=== PATIENT | male | born 1955 | race Caucasian/White ===

== ENCOUNTER 2022-11-18 07:50 | Outpatient (CLI) | payer MEDICARE, SELFPAY | END 2022-11-18 07:51 | disposition home or self-care (01) | PROVIDERS: PCP Family Medicine; Visit Provider Family Medicine | DX: H90.3 Sensorineural hearing loss, bilateral (principal) | CPT/HCPCS: 92557; 92567 ==

== ENCOUNTER 2023-05-20 14:47 | Inpatient (IN) | payer MEDICARE, SELFPAY ==
[2023-05-20 15:08] VITALS: BMI 30.2
[2023-05-20 16:00] VITALS: BP 125/56; PULSE 72; RESP 20; TEMP 36.2; O2SAT 96
[2023-05-20 16:58] LABS: Glucose Point of Care 216 mg/dl (65-105)
[2023-05-20] MEDS: INSULIN HUMAN LISPRO (*BKC) 1,000 UNITS/10 ML VIAL 14 UNITS SUB-Q (17:06)
[2023-05-20] MEDS: INSULIN HUMAN LISPRO (*BKC) 1,000 UNITS/10 ML VIAL SUB-Q (17:07)
[2023-05-20] MEDS: ceFAZolin 2 GM/NS 50 ML 2 GM/50 ML BAG IVPB (17:26)
[2023-05-20] MEDS: HYDROcodone/acetaminophen (*CRX) 5-325 MG TABLET 1 TAB PO (17:28)
[2023-05-20 19:47] VITALS: PULSE 72; RESP 20; O2SAT 96
--- NOTE | 2023-05-20 19:59 | PC.NURSE ---
at bedside, states patient will need US preformed for RLE. Order to be faxed from Dr. Ramirez, vascular MD at [facility]. Will await orders.
[2023-05-20] MEDS: ATORVASTATIN 40 MG TABLET 80 MG PO (20:36)
[2023-05-20] MEDS: GABAPENTIN 300 MG CAPSULE 600 MG PO (20:36)
[2023-05-20 20:41] LABS: Glucose Point of Care 215 mg/dl (65-105)
[2023-05-21] VITALS: BP 149/44; PULSE 69; RESP 18; TEMP 36.2; O2SAT 96
[2023-05-21] MEDS: ceFAZolin 2 GM/NS 50 ML 2 GM/50 ML BAG IVPB ×3 (00:05→16:57)
[2023-05-21] MEDS: HYDROcodone/acetaminophen (*CRX) 5-325 MG TABLET 1 TAB PO ×3 (00:07→20:41)
[2023-05-21 05:12] LABS: Basophils Percent Auto 0.9 % (0.0-1.0); Eosinophils Absolute Auto 0.56 K/mm3 (0.02-0.50); Hematocrit 32.2 % (37.0-46.0); Hemoglobin 10.5 g/dL (12.4-15.3); Immature Granulocyte Absolute 0.09 K/mm3 (0.00-0.00); Immature Granulocyte Percent A 0.8 % (0.0-0.0); Lymphocytes Absolute Auto 3.53 K/mm3 (1.10-4.50); Lymphocytes Percent Auto 31.6 % (18.0-42.0); Mean Corpuscular HGB Conc 32.6 g/dL (32.0-36.0); Mean Corpuscular Hemoglobin 30.1 pg (27.0-31.0); Mean Corpuscular Volume 92.3 fL (78.0-102.0); Mean Platelet Volume 9.8 fl (8.7-11.0); Monocytes Absolute Auto 0.87 K/mm3 (0.10-0.90); Monocytes Percent Auto 7.8 % (2.0-11.0); Neutrophils Percent Auto 53.9 % (50.0-70.0); Platelet Count Result 325 K/mm3 (150-420); Red Blood Count 3.49 M/mm3 (4.70-6.10); Red Cell Distribution Width 12.6 % (11.6-14.4); White Blood Count 11.2 K/mm3 (4.8-10.8)
[2023-05-21 05:29] LABS: Alanine Aminotransferase 21 U/L (16-63); Albumin Level 2.7 g/dL (3.4-5.0); Alkaline Phosphatase 68 U/L (46-116); Anion Gap 7 mmol/L (8-16); Aspartate Amino Transferase 23 U/L (15-37); Bilirubin,Total 0.4 mg/dL (0.00-1.00); Blood Urea Nitrogen 21 mg/dL (7-18); Calcium 8.4 mg/dL (8.5-10.1); Carbon Dioxide 29 mmol/L (21-32); Chloride 103 mmol/L (98-108); Estimated CRCL calculation 94 ml/min; Estimated Glomerular Filt Rate > 60; Glucose 231 mg/dL (70-99); Magnesium 1.9 mg/dL (1.8-2.4); Osmolality Calculated 298 mOsm/kg (285-295); Potassium 4.1 mmol/L (3.5-5.1); Sodium 139 mmol/L (136-145); Total Protein 6.1 g/dL (6.4-8.2)
--- NOTE | 2023-05-21 05:50 | PC.NURSE ---
Patient declines scheduled pain med at this time. Denies pain, or further needs.
--- NOTE | 2023-05-21 07:38 | PM.IMHP ---
H&P: HPI History of Present Illness Date/Time: 05/21/23 07:38 [facility] Social History Social History Smoking status: Never smoker Alcohol intake: former Substance use: former Substance use type: marijuana Do You Feel Safe in your Home?: Yes Lack of Transportation: No Lack of Food: Never True Current Housing: I Have Housing Concerned About Future Housing: No Difficulty Paying Gas/Electric Bills: No Difficulty Paying for Meds: No Currently Unemployed: No Education: High School Diploma/GED Difficulty w/ Childcare or Family Care: No Spiritual care concerns: No Meds Home Medications and Allergies Home Medications Medication Instructions Recorded Confirmed Type Roberto SoloStar U-300 Insulin 110 units subcut HS 05/20/23 05/20/23 History aspirin 81 mg tablet,delayed 81 mg PO DAILY 05/20/23 05/20/23 History release atenolol 25 mg tablet 12.5 mg PO DAILY 05/20/23 05/20/23 History atorvastatin 80 mg tablet 80 mg PO HS 05/20/23 05/20/23 History cefazolin 1 gram intravenous 2 g IV Q8H 05/20/23 05/20/23 History piggyback cholecalciferol (vitamin D3) 125 125 mcg PO 3XW 05/20/23 05/20/23 History mcg (5,000 unit) capsule clopidogrel 75 mg tablet 75 mg PO DAILY 05/20/23 05/20/23 History collagenase clostridium histo. 250 1 applic topical DAILY 05/20/23 05/20/23 History unit/gram topical ointment (Santyl) dulaglutide 4.5 mg/0.5 mL 4.5 mg subcut WEEKLY 05/20/23 05/20/23 History subcutaneous pen injector (Trulicity) fluticasone propionate 50 2 spray intranasal DAILY 05/20/23 05/20/23 History mcg/actuation nasal spray,suspension (Allergy Relief (fluticasone)) gabapentin 600 mg tablet 600 mg PO HS 05/20/23 05/20/23 History hydrocodone 5 mg-acetaminophen 325 1 tablet PO Q6H 05/20/23 05/20/23 History mg tablet insulin lispro 200 unit/mL (3 mL) See Rx Instructions .Route .COMPLEX 05/20/23 05/20/23 History subcutaneous pen metformin 500 mg tablet 500 mg PO DAILY 05/20/23 05/20/23 History ogawggtbtdrf-iwcjflpx-guymwd tablet 1 tablet PO DAILY 05/20/23 05/20/23 History naproxen sodium 220 mg capsule 220 mg PO BID PRN pain 05/20/23 05/20/23 History potassium 99 mg tablet See Rx Instructions .Route .COMPLEX 05/20/23 05/20/23 History Allergies Allergy/AdvReac Type Severity Reaction Status Date / Time No Known Allergies Allergy Verified 05/20/23 16:24 Vital Signs Vital Signs - 24 hr 05/20/23 16:00 05/20/23 19:47 05/21/23 00:00 Temperature 36.2 C L 36.2 C L Pulse Rate 72 72 69 Respiratory Rate 20 20 18 Blood Pressure 125/56 L 149/44 H Pulse Oximetry 96 96 96 Oxygen Delivery Room Air Room Air Room Air H&P: Results Labs Labs: Short CBC 05/21/23 Range/Units 05:07 WBC 11.2 H (4.8-10.8) K/mm3 Hgb 10.5 L (12.4-15.3) g/dL Hct 32.2 L (37.0-46.0) % Plt Count 325 (150-420) K/mm3 BMP 05/21/23 05:07 Sodium 139 Potassium 4.1 Chloride 103 Carbon Dioxide 29 BUN 21 H Creatinine 0.78 Glucose 231 H Calcium 8.4 L Liver Function 05/21/23 Range/Units 05:07 Total Bilirubin 0.4 (0.00-1.00) mg/dL AST 23 (15-37) U/L ALT 21 (16-63) U/L Alkaline Phosphatase 68 (46-116) U/L Albumin 2.7 L (3.4-5.0) g/dL
[2023-05-21 08:00] VITALS: BP 136/59; PULSE 70; RESP 18; TEMP 35.9; O2SAT 96
[2023-05-21 08:07] LABS: Glucose Point of Care 247 mg/dl (65-105)
[2023-05-21] MEDS: INSULIN HUMAN LISPRO (*BKC) 1,000 UNITS/10 ML VIAL 14 UNITS SUB-Q ×3 (08:11→16:55)
[2023-05-21] MEDS: INSULIN HUMAN LISPRO (*BKC) 1,000 UNITS/10 ML VIAL SUB-Q ×2 (08:11→12:10)
[2023-05-21] MEDS: FLUTICASONE PROPIONATE 0.05% NA SPR 16 GM BTL (*BKC) 2 SPRAY NASAL (09:00)
[2023-05-21] MEDS: metFORMIN HCL 500 MG TABLET PO (09:02)
[2023-05-21] MEDS: ASPIRIN 81 MG ENTERIC TABLET PO (09:02)
[2023-05-21] MEDS: CHOLECALCIFEROL 1,000 UNITS TABLET 5000 UNITS PO (09:02)
[2023-05-21] MEDS: OPTI-GEN TAB 1 TABLET PO (09:02)
[2023-05-21] MEDS: CLOPIDOGREL BISULFATE 75 MG TABLET PO (09:02)
[2023-05-21 09:04] VITALS: PULSE 70
[2023-05-21] MEDS: atenoloL 12.5 MG TABLET PO (09:04)
[2023-05-21] MEDS: GABAPENTIN 300 MG CAPSULE PO (09:59)
[2023-05-21] MEDS: ENOXAPARIN 40 MG/0.4 ML SYRINGE SUB-Q (11:00)
--- NOTE | 2023-05-21 11:47 | PM.IMHP ---
H&P: HPI History of Present Illness Date/Time: 05/21/23 11:47 <Kitty Moon RN - Last Filed: 05/21/23 14:17> Chief Complaint: Post op toe amputation 05/14/23 at [facility] <Kitty Moon RN - Last Filed: 05/21/23 14:17> Right foot multiple toe amputation 05/14/23 at [facility] <Smith Oconnor APRN - Last Filed: 05/21/23 14:24> Narrative: 66 year old male post op R foot toes amputation on 05/14/23 at [facility]. Patient states infection started in R great toe and developed into osteomyelitis. Patient states his first surgery was an amputation of the R great and 2nd toes, which was then treated with post op abt and worsened. Patient states sores developed on foot and infection worsened. Patient reports second surgery was needed in which all toes were amputated. Patient states he is diabetic and BS range from 130 to 180, but had increased due to infection. Patient has a history of bilateral arterial stent is lower extremities and sees a vascular surgeon at [facility]. Patient has also have past history of amputations on the left lower extremities. Patient is currently NWB to [facility]. Patient has been able to use walker to move from bed to chair. Patients was up in chair and in pleasant mood. Surgical incision is intact with 21 chauncey present. Surgical site is slightly swollen and red but no discharge present on examination this morning. Patient to continue rehab, wound care, and abt therapy. <Kitty Moon RN - Last Filed: 05/21/23 14:17> 66 year old male post op R foot toes amputation on 05/14/23 at [facility]. Patient states infection started in R great toe and developed into osteomyelitis. Patient states his first surgery was an amputation of the R great and 2nd toes, which was then treated with post op antibiotics yet still worsened. Patient states sores developed on foot and infection worsened. Patient reports second surgery was needed in which all remaining toes were amputated. Patient states he is diabetic and BS range from 130 to 180, but had increased due to infection. Patient has a history of bilateral arterial stent is lower extremities and sees a vascular surgeon at [facility]. Patient has also have past history of amputations on the left lower extremities. Patient is currently NWB to E. Patient has been able to use walker to move from bed to chair. Patients was up in chair and in pleasant mood. Surgical incision is intact with 21 chauncey present. Surgical site is slightly swollen and red but no discharge present on examination this morning. Patient to continue rehab, wound care, and IV antibiotic therapy for 6 weeks. <Smith Oconnor APRN - Last Filed: 05/21/23 14:24> Review of Systems Review of Systems: All systems reviewed & are unremarkable except as noted in HPI and below <Smith Oconnor APRN - Last Filed: 05/21/23 14:24> Constitutional: Constitutional: Reports no additional constitutional complaints, Denies body ache(s), Denies chills, Denies difficulty sleeping, Denies fatigue, Denies lethargy, Denies night sweats and Denies weakness <Kitty Moon RN - Last Filed: 05/21/23 14:17> Eyes: Eyes: Reports no additional eye complaints <Kitty Moon RN - Last Filed: 05/21/23 14:17> Comments: patient states has blurry vision which is corrected with glasses <Kitty Moon RN - Last Filed: 05/21/23 14:17> ENT: Reports tinnitus <Kitty Moon RN - Last Filed: 05/21/23 14:17> Comments: report chronic tinnitus <Kitty Moon RN - Last Filed: 05/21/23 14:17> Cardiovascular: Cardiovascular: Reports no additional cardiovascular complaints, Denies chest pain and Reports pedal edema <Kitty Moon RN - Last Filed: 05/21/23 14:17> Comments: RLE swelling due to amputations 05/14/23 <Kitty Moon RN - Last Filed: 05/21/23 14:17> Respiratory: Respiratory: Reports no additional respiratory complaints, Denies chest gabby
[2023-05-21 12:10] LABS: Glucose Point of Care 286 mg/dl (65-105)
[2023-05-21 16:00] VITALS: BP 107/46; PULSE 68; RESP 18; TEMP 35.7; O2SAT 97
[2023-05-21 17:00] LABS: Glucose Point of Care 164 mg/dl (65-105)
[2023-05-21] MEDS: ATORVASTATIN 40 MG TABLET 80 MG PO (20:38)
[2023-05-21] MEDS: GABAPENTIN 300 MG CAPSULE 600 MG PO (20:39)
[2023-05-21] MEDS: INSULIN GLARGINE (*BKC) 1,000 UNITS/10 ML VIAL 30 UNITS SUB-Q (20:39)
[2023-05-21 20:48] LABS: Glucose Point of Care 246 mg/dl (65-105)
[2023-05-21 23:52] VITALS: BP 120/42; PULSE 66; RESP 18; TEMP 36.3; O2SAT 97
[2023-05-22] MEDS: ceFAZolin 2 GM/NS 50 ML 2 GM/50 ML BAG IVPB ×3 (01:05→17:49)
[2023-05-22 07:35] VITALS: BP 111/51; PULSE 63; RESP 16; TEMP 35.7; O2SAT 98
[2023-05-22 08:03] LABS: Glucose Point of Care 244 mg/dl (65-105)
[2023-05-22 08:47] VITALS: PULSE 63
[2023-05-22] MEDS: OPTI-GEN TAB 1 TABLET PO (08:47)
[2023-05-22] MEDS: atenoloL 12.5 MG TABLET PO (08:47)
[2023-05-22] MEDS: FLUTICASONE PROPIONATE 0.05% NA SPR 16 GM BTL (*BKC) 2 SPRAY NASAL (08:47)
[2023-05-22] MEDS: ENOXAPARIN 40 MG/0.4 ML SYRINGE SUB-Q (08:47)
[2023-05-22] MEDS: metFORMIN HCL 500 MG TABLET PO (08:47)
[2023-05-22] MEDS: ASPIRIN 81 MG ENTERIC TABLET PO (08:48)
[2023-05-22] MEDS: INSULIN HUMAN LISPRO (*BKC) 1,000 UNITS/10 ML VIAL 14 UNITS SUB-Q ×3 (08:48→17:48)
[2023-05-22] MEDS: CLOPIDOGREL BISULFATE 75 MG TABLET PO (08:48)
[2023-05-22] MEDS: GABAPENTIN 300 MG CAPSULE PO (08:48)
[2023-05-22] MEDS: INSULIN HUMAN LISPRO (*BKC) 1,000 UNITS/10 ML VIAL SUB-Q ×2 (08:48→11:48)
[2023-05-22 11:39] LABS: Glucose Point of Care 265 mg/dl (65-105)
[2023-05-22 16:30] VITALS: BP 105/42; PULSE 66; RESP 16; TEMP 36.1; O2SAT 97
[2023-05-22 17:00] LABS: Glucose Point of Care 131 mg/dl (65-105)
[2023-05-22] MEDS: INSULIN GLARGINE (*BKC) 1,000 UNITS/10 ML VIAL 30 UNITS SUB-Q (20:31)
[2023-05-22 20:32] LABS: Glucose Point of Care 165 mg/dl (65-105)
[2023-05-22] MEDS: GABAPENTIN 300 MG CAPSULE 600 MG PO (20:32)
[2023-05-22] MEDS: ATORVASTATIN 40 MG TABLET 80 MG PO (20:33)
[2023-05-22] MEDS: ACETAMINOPHEN 325 MG TABLET 650 MG PO (20:33)
[2023-05-23] VITALS: BP 132/49; PULSE 95; RESP 16; TEMP 36.9; O2SAT 97
[2023-05-23] MEDS: ceFAZolin 2 GM/NS 50 ML 2 GM/50 ML BAG IVPB ×3 (01:54→17:36)
[2023-05-23 07:45] VITALS: BP 122/40; PULSE 67; RESP 16; TEMP 35.8; O2SAT 99
[2023-05-23 08:09] LABS: Glucose Point of Care 230 mg/dl (65-105)
[2023-05-23] MEDS: ENOXAPARIN 40 MG/0.4 ML SYRINGE SUB-Q (08:50)
[2023-05-23] MEDS: CHOLECALCIFEROL 1,000 UNITS TABLET 5000 UNITS PO (08:50)
[2023-05-23 08:51] VITALS: PULSE 67
[2023-05-23] MEDS: metFORMIN HCL 500 MG TABLET PO (08:51)
[2023-05-23] MEDS: atenoloL 12.5 MG TABLET PO (08:51)
[2023-05-23] MEDS: ASPIRIN 81 MG ENTERIC TABLET PO (08:51)
[2023-05-23] MEDS: CLOPIDOGREL BISULFATE 75 MG TABLET PO (08:51)
[2023-05-23] MEDS: OPTI-GEN TAB 1 TABLET PO (08:51)
[2023-05-23] MEDS: GABAPENTIN 300 MG CAPSULE PO (08:51)
[2023-05-23] MEDS: INSULIN HUMAN LISPRO (*BKC) 1,000 UNITS/10 ML VIAL SUB-Q ×2 (08:52→13:05)
[2023-05-23] MEDS: INSULIN HUMAN LISPRO (*BKC) 1,000 UNITS/10 ML VIAL 14 UNITS SUB-Q ×2 (08:52→13:06)
[2023-05-23] MEDS: FLUTICASONE PROPIONATE 0.05% NA SPR 16 GM BTL (*BKC) 2 SPRAY NASAL (08:52)
[2023-05-23 12:09] LABS: Glucose Point of Care 206 mg/dl (65-105)
--- NOTE | 2023-05-23 15:30 | PC.NURSE ---
Luiza called out to ask for blood sugar to be checked, stating he feels like it is low and his vision and getting a blurry.. BS check 54. Patient given orange juice and sinan crackers. Patient states he will call if he feels low again. Nurse will cont. to monitor patient and recheck blood sugar. TRUCK BODY BUILDER Markus aware, no new orders at this time.
[2023-05-23 16:45] VITALS: BP 124/43; PULSE 69; RESP 16; TEMP 36.2; O2SAT 98
[2023-05-23 17:09] LABS: Glucose Point of Care 125 mg/dl (65-105)
[2023-05-23 17:09] LABS: Glucose Point of Care 54 mg/dl (65-105)
--- NOTE | 2023-05-23 19:28 | PC.NURSE ---
Patient is requesting Colace daily or every other day. States he does not want to get constipated. Patient and aware of PRN Miralax orders. Will update SENIOR INFORMATION SECURITY CONSULTANT during rounds d/t non-urgent nature of request.
[2023-05-23 19:58] VITALS: PULSE 69; RESP 16; O2SAT 98
[2023-05-23] MEDS: GABAPENTIN 300 MG CAPSULE 600 MG PO (20:36)
[2023-05-23] MEDS: HYDROcodone/acetaminophen (*CRX) 5-325 MG TABLET 1 TAB PO (20:37)
[2023-05-23] MEDS: ATORVASTATIN 40 MG TABLET 80 MG PO (20:37)
[2023-05-23] MEDS: INSULIN GLARGINE (*BKC) 1,000 UNITS/10 ML VIAL 30 UNITS SUB-Q (20:38)
[2023-05-23 20:40] LABS: Glucose Point of Care 292 mg/dl (65-105)
[2023-05-24] VITALS: BP 122/53; PULSE 69; RESP 16; TEMP 36.2; O2SAT 97
[2023-05-24] MEDS: ceFAZolin 2 GM/NS 50 ML 2 GM/50 ML BAG IVPB ×3 (00:07→17:41)
[2023-05-24 07:59] LABS: Glucose Point of Care 225 mg/dl (65-105)
[2023-05-24 08:00] VITALS: BP 114/51; PULSE 66; RESP 20; TEMP 35.8; O2SAT 98
[2023-05-24] MEDS: INSULIN HUMAN LISPRO (*BKC) 1,000 UNITS/10 ML VIAL SUB-Q ×2 (08:04→12:07)
[2023-05-24] MEDS: INSULIN HUMAN LISPRO (*BKC) 1,000 UNITS/10 ML VIAL 14 UNITS SUB-Q ×3 (08:05→17:00)
[2023-05-24] MEDS: FLUTICASONE PROPIONATE 0.05% NA SPR 16 GM BTL (*BKC) 2 SPRAY NASAL (09:04)
[2023-05-24 09:05] VITALS: PULSE 68
[2023-05-24] MEDS: OPTI-GEN TAB 1 TABLET PO (09:05)
[2023-05-24] MEDS: GABAPENTIN 300 MG CAPSULE PO (09:05)
[2023-05-24] MEDS: CLOPIDOGREL BISULFATE 75 MG TABLET PO (09:05)
[2023-05-24] MEDS: metFORMIN HCL 500 MG TABLET PO (09:05)
[2023-05-24] MEDS: ASPIRIN 81 MG ENTERIC TABLET PO (09:05)
[2023-05-24] MEDS: atenoloL 12.5 MG TABLET PO (09:05)
[2023-05-24] MEDS: ENOXAPARIN 40 MG/0.4 ML SYRINGE SUB-Q (09:14)
[2023-05-24 12:01] LABS: Glucose Point of Care 215 mg/dl (65-105)
[2023-05-24 16:00] VITALS: BP 129/45; PULSE 65; RESP 18; TEMP 36.1; O2SAT 95
[2023-05-24 17:09] LABS: Glucose Point of Care 168 mg/dl (65-105)
[2023-05-24 20:00] VITALS: PULSE 65; RESP 18; O2SAT 95
[2023-05-24] MEDS: GABAPENTIN 300 MG CAPSULE 600 MG PO (20:41)
[2023-05-24] MEDS: HYDROcodone/acetaminophen (*CRX) 5-325 MG TABLET 1 TAB PO (20:41)
[2023-05-24] MEDS: ATORVASTATIN 40 MG TABLET 80 MG PO (20:41)
[2023-05-24 20:44] LABS: Glucose Point of Care 198 mg/dl (65-105)
[2023-05-24] MEDS: INSULIN GLARGINE (*BKC) 1,000 UNITS/10 ML VIAL 30 UNITS SUB-Q (21:55)
[2023-05-24 23:57] VITALS: BP 127/56; PULSE 66; RESP 17; TEMP 36.2; O2SAT 99
[2023-05-25] MEDS: ceFAZolin 2 GM/NS 50 ML 2 GM/50 ML BAG IVPB ×3 (00:11→17:06)
[2023-05-25 07:26] LABS: Glucose Point of Care 212 mg/dl (65-105)
[2023-05-25] MEDS: INSULIN HUMAN LISPRO (*BKC) 1,000 UNITS/10 ML VIAL 14 UNITS SUB-Q ×3 (07:32→17:04)
[2023-05-25] MEDS: INSULIN HUMAN LISPRO (*BKC) 1,000 UNITS/10 ML VIAL SUB-Q ×2 (07:32→11:40)
[2023-05-25 08:00] VITALS: BP 111/56; PULSE 61; RESP 18; TEMP 36.1; O2SAT 98
[2023-05-25] MEDS: CHOLECALCIFEROL 1,000 UNITS TABLET 5000 UNITS PO (09:05)
[2023-05-25 09:06] VITALS: PULSE 65
[2023-05-25] MEDS: OPTI-GEN TAB 1 TABLET PO (09:06)
[2023-05-25] MEDS: CLOPIDOGREL BISULFATE 75 MG TABLET PO (09:06)
[2023-05-25] MEDS: metFORMIN HCL 500 MG TABLET PO (09:06)
[2023-05-25] MEDS: GABAPENTIN 300 MG CAPSULE PO (09:06)
[2023-05-25] MEDS: atenoloL 12.5 MG TABLET PO (09:06)
[2023-05-25] MEDS: ENOXAPARIN 40 MG/0.4 ML SYRINGE SUB-Q (09:07)
[2023-05-25] MEDS: ASPIRIN 81 MG ENTERIC TABLET PO (09:08)
[2023-05-25] MEDS: FLUTICASONE PROPIONATE 0.05% NA SPR 16 GM BTL (*BKC) 2 SPRAY NASAL (09:11)
[2023-05-25 11:29] LABS: Glucose Point of Care 291 mg/dl (65-105)
[2023-05-25 15:54] VITALS: BP 126/47; PULSE 65; RESP 18; TEMP 35.7; O2SAT 99
[2023-05-25 16:47] LABS: Glucose Point of Care 187 mg/dl (65-105)
[2023-05-25 20:00] VITALS: PULSE 65; RESP 18; O2SAT 99
[2023-05-25] MEDS: ATORVASTATIN 40 MG TABLET 80 MG PO (20:31)
[2023-05-25] MEDS: HYDROcodone/acetaminophen (*CRX) 5-325 MG TABLET 1 TAB PO (20:31)
[2023-05-25] MEDS: GABAPENTIN 300 MG CAPSULE 600 MG PO (20:31)
[2023-05-25 20:33] LABS: Glucose Point of Care 212 mg/dl (65-105)
[2023-05-25] MEDS: INSULIN GLARGINE (*BKC) 1,000 UNITS/10 ML VIAL 30 UNITS SUB-Q (20:43)
[2023-05-25 23:35] VITALS: BP 138/47; PULSE 66; RESP 17; TEMP 36.1; O2SAT 97
[2023-05-26] MEDS: ceFAZolin 2 GM/NS 50 ML 2 GM/50 ML BAG IVPB ×3 (00:53→15:56)
[2023-05-26 05:39] LABS: Basophils Absolute Auto 0.08 K/mm3 (0.00-0.10); Basophils Percent Auto 0.7 % (0.0-1.0); Eosinophils Absolute Auto 0.49 K/mm3 (0.02-0.50); Eosinophils Percent Auto 4.2 % (1.0-6.0); Hematocrit 32.7 % (37.0-46.0); Hemoglobin 10.5 g/dL (12.4-15.3); Immature Granulocyte Absolute 0.07 K/mm3 (0.00-0.00); Immature Granulocyte Percent A 0.6 % (0.0-0.0); Lymphocytes Absolute Auto 3.18 K/mm3 (1.10-4.50); Lymphocytes Percent Auto 27.1 % (18.0-42.0); Mean Corpuscular HGB Conc 32.1 g/dL (32.0-36.0); Mean Corpuscular Hemoglobin 29.8 pg (27.0-31.0); Mean Corpuscular Volume 92.9 fL (78.0-102.0); Mean Platelet Volume 9.9 fl (8.7-11.0); Monocytes Absolute Auto 0.92 K/mm3 (0.10-0.90); Monocytes Percent Auto 7.8 % (2.0-11.0); Neutrophils Percent Auto 59.6 % (50.0-70.0); Platelet Count Result 332 K/mm3 (150-420); Red Blood Count 3.52 M/mm3 (4.70-6.10); Red Cell Distribution Width 12.6 % (11.6-14.4); White Blood Count 11.7 K/mm3 (4.8-10.8)
[2023-05-26 05:44] LABS: Anion Gap 6 mmol/L (8-16); Blood Urea Nitrogen 18 mg/dL (7-18); Calcium 8.7 mg/dL (8.5-10.1); Carbon Dioxide 31 mmol/L (21-32); Chloride 101 mmol/L (98-108); Estimated CRCL calculation 95 ml/min; Estimated Glomerular Filt Rate > 60; Glucose 212 mg/dL (70-99); Osmolality Calculated 293 mOsm/kg (285-295); Potassium 4.1 mmol/L (3.5-5.1); Sodium 138 mmol/L (136-145)
[2023-05-26 06:38] LABS: Erythrocyte Sedimentation Rate 34 mm/hr (0-20)
[2023-05-26 07:18] LABS: Glucose Point of Care 241 mg/dl (65-105)
[2023-05-26] MEDS: INSULIN HUMAN LISPRO (*BKC) 1,000 UNITS/10 ML VIAL 14 UNITS SUB-Q ×3 (07:25→16:49)
[2023-05-26] MEDS: INSULIN HUMAN LISPRO (*BKC) 1,000 UNITS/10 ML VIAL SUB-Q ×3 (07:26→16:49)
[2023-05-26 07:27] VITALS: PULSE 62
[2023-05-26] MEDS: atenoloL 12.5 MG TABLET PO (07:27)
[2023-05-26] MEDS: OPTI-GEN TAB 1 TABLET PO (07:27)
[2023-05-26] MEDS: metFORMIN HCL 500 MG TABLET PO (07:28)
[2023-05-26] MEDS: GABAPENTIN 300 MG CAPSULE PO (07:28)
[2023-05-26] MEDS: FLUTICASONE PROPIONATE 0.05% NA SPR 16 GM BTL (*BKC) 2 SPRAY NASAL (07:29)
[2023-05-26] MEDS: CLOPIDOGREL BISULFATE 75 MG TABLET PO (07:29)
[2023-05-26] MEDS: ENOXAPARIN 40 MG/0.4 ML SYRINGE SUB-Q (07:29)
[2023-05-26] MEDS: ASPIRIN 81 MG ENTERIC TABLET PO (07:29)
[2023-05-26 07:50] VITALS: BP 129/52; PULSE 62; RESP 20; TEMP 35.9; O2SAT 97
--- NOTE | 2023-05-26 08:00 | PC.NURSE ---
Patients here to transport to . Temporary Absence sheet signed and placed on chart. Patient accompanied to front door via wheelchair by this nurse, left via private vehicle with .
--- NOTE | 2023-05-26 08:52 | PCPTNOTE ---
Patient not seen this morning for physical therapy, as he was away at an appointment.
--- NOTE | 2023-05-26 11:10 | PC.NURSE ---
1105 pt returned from Doctors visit and is back in his room
[2023-05-26 11:43] LABS: Glucose Point of Care 260 mg/dl (65-105)
[2023-05-26 16:27] LABS: Glucose Point of Care 231 mg/dl (65-105)
[2023-05-26 20:00] VITALS: PULSE 62; RESP 20; O2SAT 97
[2023-05-26] MEDS: HYDROcodone/acetaminophen (*CRX) 5-325 MG TABLET 1 TAB PO (20:21)
[2023-05-26] MEDS: polyethylene glycoL 3350 17 GM POWD.PACK PO (20:21)
[2023-05-26] MEDS: GABAPENTIN 300 MG CAPSULE 600 MG PO (20:21)
[2023-05-26] MEDS: ATORVASTATIN 40 MG TABLET 80 MG PO (20:21)
[2023-05-26] MEDS: INSULIN GLARGINE (*BKC) 1,000 UNITS/10 ML VIAL 30 UNITS SUB-Q (20:22)
[2023-05-26 20:25] LABS: Glucose Point of Care 252 mg/dl (65-105)
[2023-05-27] VITALS: BP 124/42; PULSE 69; RESP 17; TEMP 36.2; O2SAT 97
[2023-05-27] MEDS: ceFAZolin 2 GM/NS 50 ML 2 GM/50 ML BAG IVPB ×3 (00:14→17:50)
--- NOTE | 2023-05-27 07:42 | PM.IMPN ---
Progress Note: A&P Assessment and Plan (1) Osteomyelitis of right foot: Code(s): M86.9 - Osteomyelitis, unspecified Status: Acute Assessment and Plan: Status post partial foot amputation all toes removed. Patient is receiving IV antibiotics per PICC line left upper extremity. These are to continue for 6 weeks. Follow-up in five weeks and weekly lab monitoring per Infectious Disease. (2) Diabetes: Code(s): E11.9 - Type 2 diabetes mellitus without complications Status: Acute Assessment and Plan: Increased Lantus to 42 units at night, patient gets 14 units of insulin with each meal plus low-dose sliding scale. Next adjustment recommendation be to change sliding scale to high dose if the increase Lantus does not help improve his sugars. He is also not receiving his Trulicity here that he was taking at home. After further review home medications it appears the patient takes 110 units of Toujeo daily at home so we likely room to increase his Lantus dosing as needed. (3) PAD (peripheral artery disease): Code(s): I73.9 - Peripheral vascular disease, unspecified Status: Acute Assessment and Plan: ?Scheduled appointment May 29 for vascular lab at [facility] ?Scheduled appointment June 01 for vascular surgeon at [facility] Time Spent With Patient Time with patient: 15 - 25 minutes Subjective Date/time seen: 05/27/23 07:42 Interval history: Patient is at [facility] swing bed for IV antibiotics for total of 6 weeks after partial foot amputation right foot, all toes removed. Yesterday he went to see the surgeon in the clinic who wanted to wait another week to remove chauncey but otherwise is pleased with the progress and the wound. His splint was removed and he was given a walking boot for when he is up. He should not put pressure on the ball of foot per surgery recommendations. Therapy is working with patient. He is receiving IV antibiotics does not feel comfortable to do so at home and is planning on remaining at this facility for entire duration IV antibiotic course. He does have upcoming follow-up with Infectious Disease at about the 5 week hu and he is getting weekly labs that are being sent to Infectious Disease. Patient notes that he is getting a lot of carbohydrates with his food trays even though he is a diabetic diet. His blood sugars have been in the mid to high 200s for several days. We will increase Lantus. Patient had one hypoglycemic episode on May 22 but sugars have been escalating ever since. I overheard patient tell the RN that he does not drink the water here because he does not like flavor. Review of Systems Review of Systems: All systems reviewed & are unremarkable except as noted in HPI and below Exam Narrative: GENERAL: Well-appearing, well-nourished, and in no acute distress. HEAD: Normocephalic, atraumatic. ENT:? Mucous membranes moist. CHEST: Clear to auscultation.? No respiratory distress. HEART: Regular rate and rhythm. ? Normal peripheral pulses. ABDOMEN: Soft, nontender, nondistended. EXTREMITIES: Normal range of motion. No peripheral edema. right foot partial amputation all toes removed wound well approximated with chauncey no active drainage SKIN: Warm dry Generally pale NEURO: Alert and oriented x3. PSYCH: Normal mood and affect Objective Data Vital Signs Vital Signs: Vital Signs - 24 hr 05/26/23 07:50 05/26/23 07:50 05/26/23 20:00 Temperature 35.9 C L Pulse Rate 62 62 62 Respiratory Rate 20 20 20 Blood Pressure 129/52 L Pulse Oximetry 97 97 97 Oxygen Delivery Room Air Room Air Room Air 05/27/23 00:00 Temperature 36.2 C L Pulse Rate 69 Respiratory Rate 17 Blood Pressure 124/42 L Pulse Oximetry 97 Oxygen Delivery Room Air Intake/Output Intake/Output: Intake & Output 05/24/23 05/25/23 05/26/23 05/27/23 23:59 23:59 23:59 23:59 Intake Total 4253 4859 950 139
[2023-05-27 08:00] VITALS: BP 137/41; PULSE 63; RESP 16; TEMP 35.9; O2SAT 98
[2023-05-27 08:03] LABS: Glucose Point of Care 271 mg/dl (65-105)
[2023-05-27] MEDS: INSULIN HUMAN LISPRO (*BKC) 1,000 UNITS/10 ML VIAL SUB-Q ×2 (09:06→12:24)
[2023-05-27] MEDS: INSULIN HUMAN LISPRO (*BKC) 1,000 UNITS/10 ML VIAL 14 UNITS SUB-Q ×3 (09:06→17:49)
[2023-05-27 09:07] VITALS: PULSE 80
[2023-05-27] MEDS: atenoloL 12.5 MG TABLET PO (09:07)
[2023-05-27] MEDS: CHOLECALCIFEROL 1,000 UNITS TABLET 5000 UNITS PO (09:07)
[2023-05-27] MEDS: ENOXAPARIN 40 MG/0.4 ML SYRINGE SUB-Q (09:07)
[2023-05-27] MEDS: CLOPIDOGREL BISULFATE 75 MG TABLET PO (09:07)
[2023-05-27] MEDS: metFORMIN HCL 500 MG TABLET PO (09:07)
[2023-05-27] MEDS: OPTI-GEN TAB 1 TABLET PO (09:07)
[2023-05-27] MEDS: FLUTICASONE PROPIONATE 0.05% NA SPR 16 GM BTL (*BKC) 2 SPRAY NASAL (09:08)
[2023-05-27] MEDS: GABAPENTIN 300 MG CAPSULE PO (09:08)
[2023-05-27] MEDS: ASPIRIN 81 MG ENTERIC TABLET PO (09:08)
--- NOTE | 2023-05-27 11:25 | PCCCNOTE ---
Faxed weekly labs to Dr. Danie Michaud [phone].
[2023-05-27 11:46] LABS: Glucose Point of Care 268 mg/dl (65-105)
[2023-05-27 16:00] VITALS: BP 135/62; PULSE 88; RESP 17; TEMP 36.3; O2SAT 96
[2023-05-27 17:08] LABS: Glucose Point of Care 185 mg/dl (65-105)
[2023-05-27] MEDS: HYDROcodone/acetaminophen (*CRX) 5-325 MG TABLET 1 TAB PO (21:15)
[2023-05-27] MEDS: INSULIN GLARGINE (*BKC) 1,000 UNITS/10 ML VIAL 42 UNITS SUB-Q (21:15)
[2023-05-27] MEDS: ATORVASTATIN 40 MG TABLET 80 MG PO (21:15)
[2023-05-27] MEDS: GABAPENTIN 300 MG CAPSULE 600 MG PO (21:15)
[2023-05-27 21:20] LABS: Glucose Point of Care 239 mg/dl (65-105)
[2023-05-28] MEDS: ceFAZolin 2 GM/NS 50 ML 2 GM/50 ML BAG IVPB ×3 (00:25→17:57)
[2023-05-28 00:30] VITALS: BP 135/55; PULSE 68; RESP 16; TEMP 36.3; O2SAT 96
[2023-05-28 08:00] VITALS: BP 126/48; PULSE 66; RESP 16; TEMP 35.6; O2SAT 98
[2023-05-28 08:01] LABS: Glucose Point of Care 244 mg/dl (65-105)
[2023-05-28] MEDS: INSULIN HUMAN LISPRO (*BKC) 1,000 UNITS/10 ML VIAL 14 UNITS SUB-Q ×3 (09:36→18:00)
[2023-05-28] MEDS: FLUTICASONE PROPIONATE 0.05% NA SPR 16 GM BTL (*BKC) 2 SPRAY NASAL (09:37)
[2023-05-28] MEDS: INSULIN HUMAN LISPRO (*BKC) 1,000 UNITS/10 ML VIAL SUB-Q ×2 (09:37→11:46)
[2023-05-28] MEDS: ENOXAPARIN 40 MG/0.4 ML SYRINGE SUB-Q (09:38)
[2023-05-28 09:39] VITALS: PULSE 65
[2023-05-28] MEDS: ASPIRIN 81 MG ENTERIC TABLET PO (09:39)
[2023-05-28] MEDS: metFORMIN HCL 500 MG TABLET PO (09:39)
[2023-05-28] MEDS: CLOPIDOGREL BISULFATE 75 MG TABLET PO (09:39)
[2023-05-28] MEDS: GABAPENTIN 300 MG CAPSULE PO (09:39)
[2023-05-28] MEDS: atenoloL 12.5 MG TABLET PO (09:39)
[2023-05-28] MEDS: OPTI-GEN TAB 1 TABLET PO (09:39)
[2023-05-28 11:46] LABS: Glucose Point of Care 330 mg/dl (65-105)
--- NOTE | 2023-05-28 15:28 | PM.EVENT ---
Event Note Event Note Event Note: This provider assumes care from Markus Oconnor NP. I met with the patient this morning to introduce myself and establish a baseline assessment. Mr Raygoza has no questions or concerns at this time. He has a scheduled Dr appointment in [place] on 05/29. Blood glucose continues to be elevated. Home Toujeo dose is 110 units HS. Patient had one episode of hypoglycemia since admit. Will increase Lantus to half the home dose. General: well appearing, well developed, well nourished, appears stated age. HEENT: normocephalic, atraumatic. Mucous membranes moist. EOMI, PERRLA, bilateral sclera anicteric, no conjunctival injection. Neck supple without JVD, lymphadenopathy, or bruit. Respiratory: clear to auscultation bilaterally. No rales/rhonic/wheezes. Cardiovascular: Regular rate and rhythm, normal S1-S2 upon auscultation. No murmurs, rubs, or clicks. PMI is nondisplaced, capillary re-fill less than 3 second. Abdomen: Soft, flat, no pulsatile masses, non-distended and non-tender. No rebound, no guarding. No CVA tenderness, no hepatosplenomegaly. Bowel sounds present to all four quadrants. No high pitch or tinkling sounds, resonant to percussion. Extremities: No cyanosis, clubbing, or edema present. Pulses are palpable 2/1. Active ROM to all four extremities. RLE with complete toe amputation. Incision is well approximated with chauncey and trace edema. No s/s of infection. Incision painted with betadine and then wrapped with kerlix and ANGELA bandage. Neuro: Alert and orientated x 4. PERRLA. Cranial nerves 2-12 intact without focal deficit. Skin: Warm, dry, and intact, without rash, erythema, or lesion. Lines: PICC 1 lumen LUE without s/s of infection. Incisions: Right foot s/p amputation. Psych: pleasant, cooperative, normal speech, normal affect, no hallucinations, no dysarthria
[2023-05-28 16:00] VITALS: BP 138/62; PULSE 63; RESP 17; TEMP 37.2; O2SAT 92
[2023-05-28 17:06] LABS: Glucose Point of Care 159 mg/dl (65-105)
--- NOTE | 2023-05-28 18:30 | PC.NURSE ---
Changed pt's PICC dressing due to dried blood under dressing.
[2023-05-28] MEDS: ATORVASTATIN 40 MG TABLET 80 MG PO (20:04)
[2023-05-28] MEDS: GABAPENTIN 300 MG CAPSULE 600 MG PO (20:04)
[2023-05-28] MEDS: INSULIN GLARGINE (*BKC) 1,000 UNITS/10 ML VIAL 55 UNITS SUB-Q (20:05)
[2023-05-28 20:10] LABS: Glucose Point of Care 323 mg/dl (65-105)
[2023-05-28] MEDS: HYDROcodone/acetaminophen (*CRX) 5-325 MG TABLET 1 TAB PO (21:30)
[2023-05-29] VITALS: BP 124/55; PULSE 60; RESP 16; TEMP 36.1; O2SAT 97
[2023-05-29] MEDS: ceFAZolin 2 GM/NS 50 ML 2 GM/50 ML BAG IVPB ×3 (00:05→17:41)
[2023-05-29 08:00] VITALS: BP 131/54; PULSE 60; RESP 16; TEMP 35.8; O2SAT 98
[2023-05-29 08:04] LABS: Glucose Point of Care 216 mg/dl (65-105)
[2023-05-29] MEDS: INSULIN HUMAN LISPRO (*BKC) 1,000 UNITS/10 ML VIAL 14 UNITS SUB-Q ×3 (08:09→17:09)
[2023-05-29] MEDS: INSULIN HUMAN LISPRO (*BKC) 1,000 UNITS/10 ML VIAL SUB-Q ×2 (08:10→11:59)
[2023-05-29] MEDS: ENOXAPARIN 40 MG/0.4 ML SYRINGE SUB-Q (09:29)
[2023-05-29] MEDS: FLUTICASONE PROPIONATE 0.05% NA SPR 16 GM BTL (*BKC) 2 SPRAY NASAL (09:29)
[2023-05-29 09:30] VITALS: PULSE 60
[2023-05-29] MEDS: OPTI-GEN TAB 1 TABLET PO (09:30)
[2023-05-29] MEDS: metFORMIN HCL 500 MG TABLET PO (09:30)
[2023-05-29] MEDS: atenoloL 12.5 MG TABLET PO (09:30)
[2023-05-29] MEDS: CHOLECALCIFEROL 1,000 UNITS TABLET 5000 UNITS PO (09:30)
[2023-05-29] MEDS: GABAPENTIN 300 MG CAPSULE PO (09:30)
[2023-05-29] MEDS: ASPIRIN 81 MG ENTERIC TABLET PO (09:30)
[2023-05-29] MEDS: CLOPIDOGREL BISULFATE 75 MG TABLET PO (09:30)
[2023-05-29 12:02] LABS: Glucose Point of Care 244 mg/dl (65-105)
[2023-05-29 16:00] VITALS: BP 131/47; PULSE 67; RESP 16; TEMP 36; O2SAT 98
[2023-05-29 16:55] LABS: Glucose Point of Care 139 mg/dl (65-105)
[2023-05-29 20:00] VITALS: PULSE 67; RESP 16; O2SAT 98
[2023-05-29] MEDS: GABAPENTIN 300 MG CAPSULE 600 MG PO (20:07)
[2023-05-29] MEDS: ATORVASTATIN 40 MG TABLET 80 MG PO (20:07)
[2023-05-29 20:13] LABS: Glucose Point of Care 167 mg/dl (65-105)
[2023-05-29] MEDS: INSULIN GLARGINE (*BKC) 1,000 UNITS/10 ML VIAL 65 UNITS SUB-Q (20:13)
--- NOTE | 2023-05-29 20:15 | PC.NURSE ---
states concern regarding patient surgical wound. Picture shown to advertising copywriter, ball of foot under surgical incision noted to be red and dry, small pea sized purple area noted to bottom interior side (great toe side). Healing process explained to and patient, since advertising copywriter unable to visualize actual wound, will update hospitalist when here for rounds.
[2023-05-29] MEDS: HYDROcodone/acetaminophen (*CRX) 5-325 MG TABLET 1 TAB PO (21:48)
[2023-05-30] VITALS: BP 134/49; PULSE 67; RESP 16; TEMP 36.1; O2SAT 98
[2023-05-30] MEDS: ceFAZolin 2 GM/NS 50 ML 2 GM/50 ML BAG IVPB ×3 (00:06→17:51)
[2023-05-30 08:00] VITALS: BP 149/62; PULSE 64; RESP 16; TEMP 35.7; O2SAT 98
[2023-05-30 08:11] LABS: Glucose Point of Care 184 mg/dl (65-105)
[2023-05-30] MEDS: INSULIN HUMAN LISPRO (*BKC) 1,000 UNITS/10 ML VIAL 14 UNITS SUB-Q ×2 (08:25→17:10)
[2023-05-30] MEDS: ENOXAPARIN 40 MG/0.4 ML SYRINGE SUB-Q (09:16)
[2023-05-30] MEDS: OPTI-GEN TAB 1 TABLET PO (09:16)
[2023-05-30] MEDS: metFORMIN HCL 500 MG TABLET PO (09:16)
[2023-05-30] MEDS: CLOPIDOGREL BISULFATE 75 MG TABLET PO (09:16)
[2023-05-30] MEDS: GABAPENTIN 300 MG CAPSULE PO (09:16)
[2023-05-30] MEDS: FLUTICASONE PROPIONATE 0.05% NA SPR 16 GM BTL (*BKC) 2 SPRAY NASAL (09:16)
[2023-05-30] MEDS: ASPIRIN 81 MG ENTERIC TABLET PO (09:16)
[2023-05-30 09:17] VITALS: PULSE 70
[2023-05-30] MEDS: atenoloL 12.5 MG TABLET PO (09:17)
--- NOTE | 2023-05-30 09:54 | P.PNCROSS_ITS ---
Event Note Event Note Event Note: nursing stated that patient and his had concerns about the ball of his f oot having a small purplish hu. I saw the patient today and reviewed his incision. Incision is well approximated with chauncey and no drainage. He has some slight dependent edema to the posterior aspect of his foot but the area is pink and blanchable. There are no signs of infection present. Patient took pictures of the incision with his phone. And let him know that I do not have any concerns for infection and his incision is healing. Encouraged him to keep his foot elevated. No further questions at this time.
--- NOTE | 2023-05-30 10:45 | PC.NURSE ---
Patient off floor with , out of facility to appointment for vascular ultrasound.
--- NOTE | 2023-05-30 15:30 | PC.NURSE ---
Patient returned to facility, assisted to room in wheelchair
[2023-05-30] MEDS: HYDROcodone/acetaminophen (*CRX) 5-325 MG TABLET 1 TAB PO (15:34)
[2023-05-30 16:00] VITALS: BP 129/47; PULSE 64; RESP 18; TEMP 36.1; O2SAT 99
[2023-05-30 17:07] LABS: Glucose Point of Care 253 mg/dl (65-105)
[2023-05-30] MEDS: INSULIN HUMAN LISPRO (*BKC) 1,000 UNITS/10 ML VIAL SUB-Q (17:12)
[2023-05-30 19:43] VITALS: RESP 18; O2SAT 99
[2023-05-30] MEDS: GABAPENTIN 300 MG CAPSULE 600 MG PO (20:47)
[2023-05-30] MEDS: ATORVASTATIN 40 MG TABLET 80 MG PO (20:47)
[2023-05-30] MEDS: INSULIN GLARGINE (*BKC) 1,000 UNITS/10 ML VIAL 65 UNITS SUB-Q (20:47)
[2023-05-30 20:51] LABS: Glucose Point of Care 198 mg/dl (65-105)
[2023-05-31] VITALS: BP 131/44; PULSE 60; RESP 14; TEMP 36.4; O2SAT 97
[2023-05-31] MEDS: ceFAZolin 2 GM/NS 50 ML 2 GM/50 ML BAG IVPB ×3 (01:57→18:01)
[2023-05-31 07:49] LABS: Glucose Point of Care 199 mg/dl (65-105)
[2023-05-31 08:00] VITALS: BP 135/45; PULSE 60; RESP 14; TEMP 36.8; O2SAT 98
[2023-05-31] MEDS: ENOXAPARIN 40 MG/0.4 ML SYRINGE SUB-Q (09:13)
[2023-05-31] MEDS: OPTI-GEN TAB 1 TABLET PO (09:14)
[2023-05-31 09:15] VITALS: PULSE 78
[2023-05-31] MEDS: atenoloL 12.5 MG TABLET PO (09:15)
[2023-05-31] MEDS: CLOPIDOGREL BISULFATE 75 MG TABLET PO (09:15)
[2023-05-31] MEDS: CHOLECALCIFEROL 1,000 UNITS TABLET 5000 UNITS PO (09:15)
[2023-05-31] MEDS: ASPIRIN 81 MG ENTERIC TABLET PO (09:15)
[2023-05-31] MEDS: FLUTICASONE PROPIONATE 0.05% NA SPR 16 GM BTL (*BKC) 2 SPRAY NASAL (09:16)
[2023-05-31] MEDS: GABAPENTIN 300 MG CAPSULE PO (09:16)
[2023-05-31] MEDS: metFORMIN HCL 500 MG TABLET PO (09:16)
[2023-05-31] MEDS: INSULIN HUMAN LISPRO (*BKC) 1,000 UNITS/10 ML VIAL 14 UNITS SUB-Q ×3 (09:30→18:01)
[2023-05-31 11:32] LABS: Glucose Point of Care 306 mg/dl (65-105)
[2023-05-31] MEDS: INSULIN HUMAN LISPRO (*BKC) 1,000 UNITS/10 ML VIAL SUB-Q (12:10)
[2023-05-31 16:30] VITALS: BP 128/56; PULSE 65; RESP 16; TEMP 36.9; O2SAT 98
[2023-05-31 16:53] LABS: Glucose Point of Care 137 mg/dl (65-105)
[2023-05-31] MEDS: INSULIN GLARGINE (*BKC) 1,000 UNITS/10 ML VIAL 65 UNITS SUB-Q (20:06)
[2023-05-31] MEDS: GABAPENTIN 300 MG CAPSULE 600 MG PO (20:08)
[2023-05-31] MEDS: ATORVASTATIN 40 MG TABLET 80 MG PO (20:08)
[2023-05-31 20:11] LABS: Glucose Point of Care 194 mg/dl (65-105)
[2023-06-01] VITALS: BP 118/35; PULSE 77; RESP 15; TEMP 36.2; O2SAT 98
[2023-06-01] MEDS: ceFAZolin 2 GM/NS 50 ML 2 GM/50 ML BAG IVPB ×3 (01:20→17:38)
[2023-06-01] MEDS: HYDROcodone/acetaminophen (*CRX) 5-325 MG TABLET 1 TAB PO ×2 (01:22→20:47)
[2023-06-01 08:00] VITALS: BP 127/52; PULSE 63; RESP 14; TEMP 35.9; O2SAT 98
[2023-06-01 08:06] LABS: Glucose Point of Care 150 mg/dl (65-105)
[2023-06-01] MEDS: INSULIN HUMAN LISPRO (*BKC) 1,000 UNITS/10 ML VIAL 14 UNITS SUB-Q ×3 (08:35→17:37)
[2023-06-01] MEDS: ENOXAPARIN 40 MG/0.4 ML SYRINGE SUB-Q (09:38)
[2023-06-01 09:39] VITALS: PULSE 78
[2023-06-01] MEDS: GABAPENTIN 300 MG CAPSULE PO (09:39)
[2023-06-01] MEDS: atenoloL 12.5 MG TABLET PO (09:39)
[2023-06-01] MEDS: metFORMIN HCL 500 MG TABLET PO (09:39)
[2023-06-01] MEDS: OPTI-GEN TAB 1 TABLET PO (09:39)
[2023-06-01] MEDS: ASPIRIN 81 MG ENTERIC TABLET PO (09:39)
[2023-06-01] MEDS: FLUTICASONE PROPIONATE 0.05% NA SPR 16 GM BTL (*BKC) 2 SPRAY NASAL (09:40)
[2023-06-01] MEDS: CLOPIDOGREL BISULFATE 75 MG TABLET PO (09:40)
[2023-06-01 12:08] LABS: Glucose Point of Care 261 mg/dl (65-105)
[2023-06-01] MEDS: INSULIN HUMAN LISPRO (*BKC) 1,000 UNITS/10 ML VIAL SUB-Q (14:12)
[2023-06-01 16:35] VITALS: BP 118/42; PULSE 62; RESP 18; TEMP 36.2; O2SAT 98
[2023-06-01 20:39] LABS: Glucose Point of Care 147 mg/dl (65-105)
[2023-06-01] MEDS: ATORVASTATIN 40 MG TABLET 80 MG PO (20:50)
[2023-06-01 20:51] LABS: Glucose Point of Care 153 mg/dl (65-105)
[2023-06-01] MEDS: INSULIN GLARGINE (*BKC) 1,000 UNITS/10 ML VIAL 65 UNITS SUB-Q (20:51)
[2023-06-01] MEDS: GABAPENTIN 300 MG CAPSULE 600 MG PO (20:51)
--- NOTE | 2023-06-01 21:46 | PC.NURSE ---
discharge specialist notified of 153 ac, lantus given with snack of sinan crackers and peanut butter, dressing change done on R foot, no other needs at this time, call light in reach
[2023-06-02] VITALS: BP 123/57; PULSE 64; RESP 16; TEMP 36.2; O2SAT 98
[2023-06-02] MEDS: ceFAZolin 2 GM/NS 50 ML 2 GM/50 ML BAG IVPB ×3 (00:01→17:58)
[2023-06-02] MEDS: ACETAMINOPHEN 325 MG TABLET 650 MG PO (00:03)
[2023-06-02 05:31] LABS: Basophils Absolute Auto 0.06 K/mm3 (0.00-0.10); Basophils Percent Auto 0.6 % (0.0-1.0); Eosinophils Absolute Auto 0.46 K/mm3 (0.02-0.50); Hematocrit 32.5 % (37.0-46.0); Hemoglobin 10.4 g/dL (12.4-15.3); Immature Granulocyte Absolute 0.05 K/mm3 (0.00-0.00); Immature Granulocyte Percent A 0.5 % (0.0-0.0); Lymphocytes Absolute Auto 3.17 K/mm3 (1.10-4.50); Lymphocytes Percent Auto 34.3 % (18.0-42.0); Mean Corpuscular Volume 93.7 fL (78.0-102.0); Mean Platelet Volume 10.4 fl (8.7-11.0); Monocytes Absolute Auto 0.82 K/mm3 (0.10-0.90); Monocytes Percent Auto 8.9 % (2.0-11.0); Neutrophils Absolute Auto 4.7 K/mm3 (1.7-7.2); Neutrophils Percent Auto 50.7 % (50.0-70.0); Platelet Count Result 358 K/mm3 (150-420); Red Blood Count 3.47 M/mm3 (4.70-6.10); Red Cell Distribution Width 12.5 % (11.6-14.4); White Blood Count 9.3 K/mm3 (4.8-10.8)
[2023-06-02 05:39] LABS: Anion Gap 6 mmol/L (8-16); Blood Urea Nitrogen 16 mg/dL (7-18); Calcium 8.4 mg/dL (8.5-10.1); Carbon Dioxide 30 mmol/L (21-32); Chloride 103 mmol/L (98-108); Estimated CRCL calculation 100 ml/min; Estimated Glomerular Filt Rate > 60; Glucose 184 mg/dL (70-99); Osmolality Calculated 294 mOsm/kg (285-295); Potassium 4.3 mmol/L (3.5-5.1); Sodium 139 mmol/L (136-145)
[2023-06-02 06:35] LABS: Erythrocyte Sedimentation Rate 32 mm/hr (0-20)
[2023-06-02 08:00] VITALS: BP 146/60; PULSE 68; RESP 14; TEMP 36.6; O2SAT 98
[2023-06-02 08:12] LABS: Glucose Point of Care 179 mg/dl (65-105)
[2023-06-02] MEDS: INSULIN HUMAN LISPRO (*BKC) 1,000 UNITS/10 ML VIAL 14 UNITS SUB-Q ×2 (08:40→17:59)
--- NOTE | 2023-06-02 09:21 | PM.IMPN ---
Progress Note: A&P Assessment and Plan (1) Osteomyelitis of right foot: Code(s): M86.9 - Osteomyelitis, unspecified Status: Acute Assessment and Plan: Status post partial foot amputation all toes removed. Patient is receiving IV antibiotics per PICC line left upper extremity. These are to continue for 6 weeks. Follow-up in five weeks and weekly lab monitoring per Infectious Disease. 06/01: Healing well. Continue with daily Betadine painting of incision. Labs were reviewed today. (2) Diabetes: Code(s): E11.9 - Type 2 diabetes mellitus without complications Status: Acute Assessment and Plan: Increased Lantus to 42 units at night, patient gets 14 units of insulin with each meal plus low-dose sliding scale. Next adjustment recommendation be to change sliding scale to high dose if the increase Lantus does not help improve his sugars. He is also not receiving his Trulicity here that he was taking at home. After further review home medications it appears the patient takes 110 units of Toujeo daily at home so we likely room to increase his Lantus dosing as needed. 06/01: Currently receiving less pro 14 units with meals and high-dose sliding scale. He is receiving Lantus 65 units at night. Blood sugars ranging 137 to 194. (3) PAD (peripheral artery disease): Code(s): I73.9 - Peripheral vascular disease, unspecified Status: Acute Assessment and Plan: ?Scheduled appointment May 29 for vascular lab at [facility] -ultrasound ?Scheduled appointment June 01 for vascular surgeon at [facility] Plan Feeding: Diabetic diet Analgesia: [place] Thromboembolic prophylaxis: Lovenox Ulcer prophylaxis: Glycemic control: Lispro 14 units with meals, high-dose sliding scale, 65 units of Lantus HS. Hypoglycemia protocol in place Bowel regimen: P.r.n. MiraLax Lines: Antibiotics: Cefazolin Q 8 through 06/29 Disposition: Subjective Date/time seen: 06/02/23 09:21 Interval history: HPI obtained from the chart, Patient is at [facility] swing bed for IV antibiotics for total of 6 weeks after partial foot amputation right foot, all toes removed.? Yesterday he went to see the surgeon in the clinic who wanted to wait another week to remove chauncey but otherwise is pleased with the progress and the wound.? His splint was removed and he was given a walking boot for when he is up.? He should not put pressure on the ball of foot per surgery recommendations.? Therapy is working with patient.? He is receiving IV antibiotics does not feel comfortable to do so at home and is planning on remaining at this facility for entire duration IV antibiotic course.? He does have upcoming follow-up with Infectious Disease at about the 5 week hu and he is getting weekly labs that are being sent to Infectious Disease.? Patient notes that he is getting a lot of carbohydrates with his food trays even though he is a diabetic diet.? His blood sugars have been in the mid to high 200s for several days.? We will increase Lantus.? Patient had one hypoglycemic episode on May 22 but sugars have been escalating ever since.? I overheard patient tell the RN that he does not drink the water here because he does not like flavor. 3-11: Patient is due for recertification of swing status. He was seen and assessed today. He denies any new complaints today. He is supposed to go see his vascular doctor today at [facility]. He denies headache, dizziness, chest pain, shortness a breath, nausea, vomiting, diarrhea or constipation. Is working with therapy. He has a left upper arm PICC line for IV antibiotics. PICC line was assessed and looks well. He is receiving daily dressing changes to his right foot. I recently assessed his incision and it is well approximated with chauncey. Acute problem be left open to air at this point but will leave that up to the surgeon. Review of Systems Revi
[2023-06-02] MEDS: CHOLECALCIFEROL 1,000 UNITS TABLET 5000 UNITS PO (09:23)
[2023-06-02] MEDS: ENOXAPARIN 40 MG/0.4 ML SYRINGE SUB-Q (09:23)
[2023-06-02] MEDS: metFORMIN HCL 500 MG TABLET PO (09:24)
[2023-06-02] MEDS: GABAPENTIN 300 MG CAPSULE PO (09:24)
[2023-06-02] MEDS: OPTI-GEN TAB 1 TABLET PO (09:24)
[2023-06-02 09:25] VITALS: PULSE 78
[2023-06-02] MEDS: ASPIRIN 81 MG ENTERIC TABLET PO (09:25)
[2023-06-02] MEDS: CLOPIDOGREL BISULFATE 75 MG TABLET PO (09:25)
[2023-06-02] MEDS: atenoloL 12.5 MG TABLET PO (09:25)
[2023-06-02] MEDS: FLUTICASONE PROPIONATE 0.05% NA SPR 16 GM BTL (*BKC) 2 SPRAY NASAL (09:28)
--- NOTE | 2023-06-02 12:44 | PCCCNOTE ---
Pt's Inna called and states she has Santos at [facility] ED due to his PICC line bleeding. He most likely will not make it to his Dr. Hebert appointment today.
--- NOTE | 2023-06-02 12:55 | PC.NURSE ---
Tootie Pick Pulling Machine Operator notified my that she recieved a call from patients that patients PICC site was having some bleeding and that patient is in [facility] ER currently to have PICC site examined. Patient did not make it to Dr. De La Cruz with Dr. Anna.
--- NOTE | 2023-06-02 13:13 | PCCCNOTE ---
Faxed labs and progress note from 06/02/[address] Danie Michaud [phone].
--- NOTE | 2023-06-02 16:10 | PC.NURSE ---
Patient back in room from Dr. lopez. Patient had small amount of bleeding from PICC line site. Patient went to [facility] ER. Op site removed to PICC line in ER. Bleeding has stopped. ER nurse applied new op Site. Site looks clean dry and intact. Patient was not able to make it to Dr. Shoshana lopez. states she will call and reschedule appt. Patient sitting up in chair resting with BLE elevated. PICC site free of blood currently. Educated patient about bearing/lifting too much weight and the effects of that on PICC sites, and possible reasoning for bleeding at PICC site. Patient states understanding.
[2023-06-02 16:45] VITALS: BP 135/44; PULSE 72; RESP 16; TEMP 36; O2SAT 97
[2023-06-02 16:58] LABS: Glucose Point of Care 234 mg/dl (65-105)
[2023-06-02] MEDS: INSULIN HUMAN LISPRO (*BKC) 1,000 UNITS/10 ML VIAL SUB-Q (17:58)
--- NOTE | 2023-06-02 18:35 | PC.NURSE ---
Tegaderm placed on PICC site when patient was in ER was too small for site. Tegaderm removed and proper size tegaderm applied to site after cleansing. Patient tolerated well. Call light at side.
[2023-06-02] MEDS: HYDROcodone/acetaminophen (*CRX) 5-325 MG TABLET 1 TAB PO (18:38)
[2023-06-02 20:00] VITALS: PULSE 72; RESP 16; O2SAT 97
[2023-06-02] MEDS: GABAPENTIN 300 MG CAPSULE 600 MG PO (21:04)
[2023-06-02] MEDS: ATORVASTATIN 40 MG TABLET 80 MG PO (21:05)
[2023-06-02] MEDS: INSULIN GLARGINE (*BKC) 1,000 UNITS/10 ML VIAL 65 UNITS SUB-Q (21:07)
[2023-06-02 21:09] LABS: Glucose Point of Care 246 mg/dl (65-105)
[2023-06-03] VITALS: BP 138/49; PULSE 66; RESP 17; TEMP 36.2; O2SAT 97
[2023-06-03] MEDS: ceFAZolin 2 GM/NS 50 ML 2 GM/50 ML BAG IVPB ×3 (00:13→17:15)
[2023-06-03 07:45] VITALS: BP 130/45; PULSE 87; RESP 16; TEMP 35.7; O2SAT 94
[2023-06-03 07:46] LABS: Glucose Point of Care 184 mg/dl (65-105)
[2023-06-03 08:54] VITALS: PULSE 87
[2023-06-03] MEDS: OPTI-GEN TAB 1 TABLET PO (08:54)
[2023-06-03] MEDS: ENOXAPARIN 40 MG/0.4 ML SYRINGE SUB-Q (08:54)
[2023-06-03] MEDS: INSULIN HUMAN LISPRO (*BKC) 1,000 UNITS/10 ML VIAL 14 UNITS SUB-Q ×3 (08:54→17:13)
[2023-06-03] MEDS: atenoloL 12.5 MG TABLET PO (08:54)
[2023-06-03] MEDS: FLUTICASONE PROPIONATE 0.05% NA SPR 16 GM BTL (*BKC) 2 SPRAY NASAL (08:55)
[2023-06-03] MEDS: GABAPENTIN 300 MG CAPSULE PO (08:55)
[2023-06-03] MEDS: ASPIRIN 81 MG ENTERIC TABLET PO (08:55)
[2023-06-03] MEDS: metFORMIN HCL 500 MG TABLET PO (08:55)
[2023-06-03] MEDS: CLOPIDOGREL BISULFATE 75 MG TABLET PO (08:55)
[2023-06-03 11:36] LABS: Glucose Point of Care 226 mg/dl (65-105)
[2023-06-03] MEDS: INSULIN HUMAN LISPRO (*BKC) 1,000 UNITS/10 ML VIAL SUB-Q (11:38)
[2023-06-03 16:00] VITALS: BP 130/52; PULSE 62; RESP 18; TEMP 35.8; O2SAT 97
[2023-06-03 16:45] LABS: Glucose Point of Care 100 mg/dl (65-105)
[2023-06-03 20:00] VITALS: PULSE 62; RESP 18; O2SAT 97
[2023-06-03] MEDS: ATORVASTATIN 40 MG TABLET 80 MG PO (20:50)
[2023-06-03] MEDS: GABAPENTIN 300 MG CAPSULE 600 MG PO (20:50)
[2023-06-03] MEDS: INSULIN GLARGINE (*BKC) 1,000 UNITS/10 ML VIAL 65 UNITS SUB-Q (20:52)
[2023-06-03 20:53] LABS: Glucose Point of Care 303 mg/dl (65-105)
[2023-06-04] VITALS: BP 127/54; PULSE 71; RESP 16; TEMP 36.2; O2SAT 97
[2023-06-04] MEDS: ceFAZolin 2 GM/NS 50 ML 2 GM/50 ML BAG IVPB ×3 (00:22→17:14)
[2023-06-04 07:32] LABS: Glucose Point of Care 197 mg/dl (65-105)
[2023-06-04] MEDS: INSULIN HUMAN LISPRO (*BKC) 1,000 UNITS/10 ML VIAL 14 UNITS SUB-Q ×2 (07:36→17:07)
[2023-06-04] MEDS: ENOXAPARIN 40 MG/0.4 ML SYRINGE SUB-Q (07:37)
[2023-06-04] MEDS: FLUTICASONE PROPIONATE 0.05% NA SPR 16 GM BTL (*BKC) 2 SPRAY NASAL (07:37)
[2023-06-04] MEDS: OPTI-GEN TAB 1 TABLET PO (07:38)
[2023-06-04] MEDS: CHOLECALCIFEROL 1,000 UNITS TABLET 5000 UNITS PO (07:38)
[2023-06-04] MEDS: ASPIRIN 81 MG ENTERIC TABLET PO (07:38)
[2023-06-04] MEDS: metFORMIN HCL 500 MG TABLET PO (07:38)
[2023-06-04] MEDS: CLOPIDOGREL BISULFATE 75 MG TABLET PO (07:38)
[2023-06-04] MEDS: GABAPENTIN 300 MG CAPSULE PO (07:38)
[2023-06-04 07:40] VITALS: PULSE 60
[2023-06-04] MEDS: atenoloL 12.5 MG TABLET PO (07:40)
[2023-06-04 08:00] VITALS: BP 122/43; PULSE 74; RESP 18; TEMP 35.9; O2SAT 98
--- NOTE | 2023-06-04 08:55 | PC.NURSE ---
Patient off floor, leaving with for doctor appointments. Assisted into vehicle. Out of facility at [id number]
[2023-06-04 16:00] VITALS: BP 137/48; PULSE 64; RESP 18; TEMP 36.3; O2SAT 98
[2023-06-04 17:07] LABS: Glucose Point of Care 326 mg/dl (65-105)
[2023-06-04] MEDS: INSULIN HUMAN LISPRO (*BKC) 1,000 UNITS/10 ML VIAL SUB-Q (17:07)
[2023-06-04] MEDS: HYDROcodone/acetaminophen (*CRX) 5-325 MG TABLET 1 TAB PO (18:51)
[2023-06-04] MEDS: GABAPENTIN 300 MG CAPSULE 600 MG PO (20:51)
[2023-06-04] MEDS: INSULIN GLARGINE (*BKC) 1,000 UNITS/10 ML VIAL 65 UNITS SUB-Q (20:52)
[2023-06-04] MEDS: ATORVASTATIN 40 MG TABLET 80 MG PO (20:52)
[2023-06-04 20:55] LABS: Glucose Point of Care 344 mg/dl (65-105)
[2023-06-05] VITALS: BP 148/48; PULSE 67; RESP 16; TEMP 37.4; O2SAT 97
[2023-06-05] MEDS: ceFAZolin 2 GM/NS 50 ML 2 GM/50 ML BAG IVPB ×3 (01:59→17:00)
[2023-06-05 08:00] VITALS: BP 127/58; PULSE 60; RESP 20; TEMP 36.8; O2SAT 98
[2023-06-05 08:07] LABS: Glucose Point of Care 214 mg/dl (65-105)
[2023-06-05] MEDS: INSULIN HUMAN LISPRO (*BKC) 1,000 UNITS/10 ML VIAL 14 UNITS SUB-Q ×3 (08:22→16:59)
--- NOTE | 2023-06-05 09:30 | PM.IMPN ---
Progress Note: A&P Assessment and Plan (1) Osteomyelitis of right foot: Code(s): M86.9 - Osteomyelitis, unspecified Status: Acute Assessment and Plan: Status post partial foot amputation all toes removed. Patient is receiving IV antibiotics per PICC line left upper extremity. These are to continue for 6 weeks. Follow-up in five weeks and weekly lab monitoring per Infectious Disease. 06/01: Healing well. Continue with daily Betadine painting of incision. Labs were reviewed today. 06/04: [place] removed yesterday looks good okay with open to air however surgeon not provide any wound care instructions but did reapply Alexander wrap without further dressing. (2) Diabetes: Code(s): E11.9 - Type 2 diabetes mellitus without complications Status: Acute Assessment and Plan: Increased Lantus to 42 units at night, patient gets 14 units of insulin with each meal plus low-dose sliding scale. Next adjustment recommendation be to change sliding scale to high dose if the increase Lantus does not help improve his sugars. He is also not receiving his Trulicity here that he was taking at home. After further review home medications it appears the patient takes 110 units of Toujeo daily at home so we likely room to increase his Lantus dosing as needed. 06/01: Currently receiving less pro 14 units with meals and high-dose sliding scale. He is receiving Lantus 65 units at night. Blood sugars ranging 137 to 194. 06/04:: See above for changes to insulin management (3) PAD (peripheral artery disease): Code(s): I73.9 - Peripheral vascular disease, unspecified Status: Acute Assessment and Plan: ?Scheduled appointment May 29 for vascular lab at [facility] -ultrasound ?Scheduled appointment June 01 for vascular surgeon at [facility] 06/04: Patient has gone to follow-up visit no further instructions received at this time Plan Feeding: Diabetic diet Analgesia: [place] Thromboembolic prophylaxis: Lovenox Ulcer prophylaxis: Glycemic control: Lispro 14 units with meals, high-dose sliding scale to restart on 06/05, 35 units of Lantus Q12H. Hypoglycemia protocol in place Bowel regimen: P.r.n. MiraLax Activity: Nonweightbearing right lower extremity until next visit with surgeon scheduled on 06/17??? Antibiotics: Cefazolin Q 8 through 06/29 Disposition: Time Spent With Patient Time with patient: 25 - 35 minutes Subjective Date/time seen: 06/05/23 09:30 Interval history: HPI obtained from the chart, Patient is at [facility] [place], [place] swing bed for IV antibiotics for total of 6 weeks after partial foot amputation right foot, all toes removed.? Yesterday he went to see the surgeon in the clinic who wanted to wait another week to remove chauncey but otherwise is pleased with the progress and the wound.? His splint was removed and he was given a walking boot for when he is up.? He should not put pressure on the ball of foot per surgery recommendations.? Therapy is working with patient.? He is receiving IV antibiotics does not feel comfortable to do so at home and is planning on remaining at this facility for entire duration IV antibiotic course.? He does have upcoming follow-up with Infectious Disease at about the 5 week hu and he is getting weekly labs that are being sent to Infectious Disease.? Patient notes that he is getting a lot of carbohydrates with his food trays even though he is a diabetic diet.? His blood sugars have been in the mid to high 200s for several days.? We will increase Lantus.? Patient had one hypoglycemic episode on May 22 but sugars have been escalating ever since.? I overheard patient tell the RN that he does not drink the water here because he does not like flavor. 3-11: Patient is due for recertification of swing status. He was seen and assessed today. He denies any new complaints today. He is supposed to go see his vascular doctor today at
[2023-06-05] MEDS: FLUTICASONE PROPIONATE 0.05% NA SPR 16 GM BTL (*BKC) 2 SPRAY NASAL (09:33)
[2023-06-05] MEDS: GABAPENTIN 300 MG CAPSULE PO (09:33)
[2023-06-05 09:34] VITALS: PULSE 62
[2023-06-05] MEDS: OPTI-GEN TAB 1 TABLET PO (09:34)
[2023-06-05] MEDS: CLOPIDOGREL BISULFATE 75 MG TABLET PO (09:34)
[2023-06-05] MEDS: metFORMIN HCL 500 MG TABLET PO (09:34)
[2023-06-05] MEDS: atenoloL 12.5 MG TABLET PO (09:34)
[2023-06-05] MEDS: ASPIRIN 81 MG ENTERIC TABLET PO (09:34)
[2023-06-05] MEDS: INSULIN GLARGINE (*BKC) 1,000 UNITS/10 ML VIAL 35 UNITS SUB-Q ×2 (09:35→22:14)
[2023-06-05 12:10] LABS: Glucose Point of Care 269 mg/dl (65-105)
[2023-06-05 16:00] VITALS: BP 142/58; PULSE 59; RESP 16; TEMP 36.6
[2023-06-05 16:18] LABS: Glucose Point of Care 194 mg/dl (65-105)
[2023-06-05] MEDS: ATORVASTATIN 40 MG TABLET 80 MG PO (22:13)
[2023-06-05] MEDS: GABAPENTIN 300 MG CAPSULE 600 MG PO (22:13)
[2023-06-05 22:22] LABS: Glucose Point of Care 216 mg/dl (65-105)
[2023-06-05] MEDS: HYDROcodone/acetaminophen (*CRX) 5-325 MG TABLET 1 TAB PO (22:24)
[2023-06-06] VITALS: BP 118/48; PULSE 58; RESP 12; TEMP 36.3; O2SAT 98
[2023-06-06] MEDS: ceFAZolin 2 GM/NS 50 ML 2 GM/50 ML BAG IVPB ×3 (00:02→16:52)
[2023-06-06 08:00] VITALS: BP 120/42; PULSE 59; RESP 14; TEMP 35.7; O2SAT 97
[2023-06-06 08:10] LABS: Glucose Point of Care 189 mg/dl (65-105)
[2023-06-06] MEDS: FLUTICASONE PROPIONATE 0.05% NA SPR 16 GM BTL (*BKC) 2 SPRAY NASAL (09:45)
[2023-06-06] MEDS: INSULIN HUMAN LISPRO (*BKC) 1,000 UNITS/10 ML VIAL 14 UNITS SUB-Q ×3 (09:45→16:52)
[2023-06-06] MEDS: OPTI-GEN TAB 1 TABLET PO (09:46)
[2023-06-06] MEDS: metFORMIN HCL 500 MG TABLET PO (09:46)
[2023-06-06] MEDS: CHOLECALCIFEROL 1,000 UNITS TABLET 5000 UNITS PO (09:46)
[2023-06-06] MEDS: CLOPIDOGREL BISULFATE 75 MG TABLET PO (09:47)
[2023-06-06] MEDS: ASPIRIN 81 MG ENTERIC TABLET PO (09:47)
[2023-06-06 09:48] VITALS: PULSE 59
[2023-06-06] MEDS: atenoloL 12.5 MG TABLET PO (09:48)
[2023-06-06] MEDS: INSULIN GLARGINE (*BKC) 1,000 UNITS/10 ML VIAL 35 UNITS SUB-Q ×2 (09:49→20:54)
[2023-06-06] MEDS: GABAPENTIN 300 MG CAPSULE PO (09:49)
[2023-06-06 11:56] LABS: Glucose Point of Care 332 mg/dl (65-105)
[2023-06-06] MEDS: INSULIN HUMAN LISPRO (*BKC) 1,000 UNITS/10 ML VIAL SUB-Q (12:17)
[2023-06-06 16:00] VITALS: BP 123/52; PULSE 56; RESP 18; TEMP 36.5; O2SAT 98
[2023-06-06 16:37] LABS: Glucose Point of Care 113 mg/dl (65-105)
[2023-06-06] MEDS: ATORVASTATIN 40 MG TABLET 80 MG PO (20:52)
[2023-06-06] MEDS: HYDROcodone/acetaminophen (*CRX) 5-325 MG TABLET 1 TAB PO (20:53)
[2023-06-06] MEDS: GABAPENTIN 300 MG CAPSULE 600 MG PO (20:54)
[2023-06-06 20:57] LABS: Glucose Point of Care 139 mg/dl (65-105)
[2023-06-07] VITALS: BP 141/59; PULSE 59; RESP 18; TEMP 36.2; O2SAT 98
[2023-06-07] MEDS: ceFAZolin 2 GM/NS 50 ML 2 GM/50 ML BAG IVPB ×3 (01:07→17:49)
[2023-06-07 08:00] VITALS: BP 118/51; PULSE 60; RESP 16; TEMP 36.1; O2SAT 98
[2023-06-07 08:08] LABS: Glucose Point of Care 134 mg/dl (65-105)
[2023-06-07] MEDS: INSULIN HUMAN LISPRO (*BKC) 1,000 UNITS/10 ML VIAL 14 UNITS SUB-Q ×3 (08:14→17:08)
[2023-06-07] MEDS: INSULIN GLARGINE (*BKC) 1,000 UNITS/10 ML VIAL 35 UNITS SUB-Q ×2 (08:16→20:53)
[2023-06-07] MEDS: FLUTICASONE PROPIONATE 0.05% NA SPR 16 GM BTL (*BKC) 2 SPRAY NASAL (09:38)
[2023-06-07 09:39] VITALS: PULSE 60
[2023-06-07] MEDS: metFORMIN HCL 500 MG TABLET PO (09:39)
[2023-06-07] MEDS: OPTI-GEN TAB 1 TABLET PO (09:39)
[2023-06-07] MEDS: GABAPENTIN 300 MG CAPSULE PO (09:39)
[2023-06-07] MEDS: atenoloL 12.5 MG TABLET PO (09:39)
[2023-06-07] MEDS: ASPIRIN 81 MG ENTERIC TABLET PO (09:39)
[2023-06-07] MEDS: CLOPIDOGREL BISULFATE 75 MG TABLET PO (09:39)
[2023-06-07 12:20] LABS: Glucose Point of Care 178 mg/dl (65-105)
[2023-06-07 16:00] VITALS: BP 140/56; PULSE 60; RESP 18; TEMP 36.1; O2SAT 97
[2023-06-07 16:56] LABS: Glucose Point of Care 104 mg/dl (65-105)
[2023-06-07 20:00] VITALS: PULSE 60; RESP 18; O2SAT 97
[2023-06-07] MEDS: ATORVASTATIN 40 MG TABLET 80 MG PO (20:52)
[2023-06-07] MEDS: GABAPENTIN 300 MG CAPSULE 600 MG PO (20:52)
[2023-06-07 20:55] LABS: Glucose Point of Care 151 mg/dl (65-105)
[2023-06-08] VITALS: BP 135/65; PULSE 67; RESP 16; TEMP 36.3; O2SAT 97
[2023-06-08] MEDS: ceFAZolin 2 GM/NS 50 ML 2 GM/50 ML BAG IVPB ×3 (00:42→17:53)
[2023-06-08 08:00] VITALS: BP 120/53; PULSE 66; RESP 18; TEMP 36.3; O2SAT 96
[2023-06-08 08:05] LABS: Glucose Point of Care 148 mg/dl (65-105)
[2023-06-08] MEDS: INSULIN HUMAN LISPRO (*BKC) 1,000 UNITS/10 ML VIAL 14 UNITS SUB-Q ×3 (08:16→17:23)
[2023-06-08] MEDS: CHOLECALCIFEROL 1,000 UNITS TABLET 5000 UNITS PO (09:42)
[2023-06-08] MEDS: ASPIRIN 81 MG ENTERIC TABLET PO (09:42)
[2023-06-08] MEDS: INSULIN GLARGINE (*BKC) 1,000 UNITS/10 ML VIAL 35 UNITS SUB-Q ×2 (09:42→20:50)
[2023-06-08 09:43] VITALS: PULSE 66
[2023-06-08] MEDS: CLOPIDOGREL BISULFATE 75 MG TABLET PO (09:43)
[2023-06-08] MEDS: FLUTICASONE PROPIONATE 0.05% NA SPR 16 GM BTL (*BKC) 2 SPRAY NASAL (09:43)
[2023-06-08] MEDS: OPTI-GEN TAB 1 TABLET PO (09:43)
[2023-06-08] MEDS: GABAPENTIN 300 MG CAPSULE PO (09:43)
[2023-06-08] MEDS: metFORMIN HCL 500 MG TABLET PO (09:43)
[2023-06-08] MEDS: atenoloL 12.5 MG TABLET PO (09:43)
[2023-06-08 11:58] LABS: Glucose Point of Care 230 mg/dl (65-105)
[2023-06-08] MEDS: INSULIN HUMAN LISPRO (*BKC) 1,000 UNITS/10 ML VIAL SUB-Q (12:13)
[2023-06-08 16:00] VITALS: BP 123/54; PULSE 58; RESP 18; TEMP 36.1; O2SAT 98
[2023-06-08 17:04] LABS: Glucose Point of Care 142 mg/dl (65-105)
[2023-06-08 20:50] LABS: Glucose Point of Care 178 mg/dl (65-105)
[2023-06-08] MEDS: ATORVASTATIN 40 MG TABLET 80 MG PO (20:50)
[2023-06-08] MEDS: GABAPENTIN 300 MG CAPSULE 600 MG PO (20:50)
[2023-06-09] VITALS: BP 137/52; PULSE 62; RESP 16; TEMP 36.6; O2SAT 99
[2023-06-09] MEDS: ceFAZolin 2 GM/NS 50 ML 2 GM/50 ML BAG IVPB ×3 (00:34→17:44)
[2023-06-09 07:48] LABS: Glucose Point of Care 144 mg/dl (65-105)
[2023-06-09 08:00] VITALS: BP 122/51; PULSE 58; RESP 16; TEMP 36.1; O2SAT 98
[2023-06-09] MEDS: INSULIN HUMAN LISPRO (*BKC) 1,000 UNITS/10 ML VIAL 14 UNITS SUB-Q ×3 (08:00→17:42)
[2023-06-09] MEDS: INSULIN GLARGINE (*BKC) 1,000 UNITS/10 ML VIAL 35 UNITS SUB-Q ×2 (09:00→20:40)
[2023-06-09 09:13] VITALS: PULSE 63
[2023-06-09] MEDS: atenoloL 12.5 MG TABLET PO (09:13)
[2023-06-09] MEDS: FLUTICASONE PROPIONATE 0.05% NA SPR 16 GM BTL (*BKC) 2 SPRAY NASAL (09:13)
[2023-06-09] MEDS: OPTI-GEN TAB 1 TABLET PO (09:14)
[2023-06-09] MEDS: CLOPIDOGREL BISULFATE 75 MG TABLET PO (09:14)
[2023-06-09] MEDS: metFORMIN HCL 500 MG TABLET PO (09:14)
[2023-06-09] MEDS: GABAPENTIN 300 MG CAPSULE PO (09:14)
[2023-06-09] MEDS: ASPIRIN 81 MG ENTERIC TABLET PO (09:15)
[2023-06-09 09:18] LABS: Basophils Absolute Auto 0.08 K/mm3 (0.00-0.10); Basophils Percent Auto 0.8 % (0.0-1.0); Eosinophils Absolute Auto 0.35 K/mm3 (0.02-0.50); Eosinophils Percent Auto 3.4 % (1.0-6.0); Hematocrit 34.1 % (37.0-46.0); Immature Granulocyte Absolute 0.06 K/mm3 (0.00-0.00); Immature Granulocyte Percent A 0.6 % (0.0-0.0); Lymphocytes Absolute Auto 2.25 K/mm3 (1.10-4.50); Lymphocytes Percent Auto 21.6 % (18.0-42.0); Mean Corpuscular HGB Conc 32.3 g/dL (32-36); Mean Corpuscular Hemoglobin 30.1 pg (27.0-31.0); Mean Corpuscular Volume 93.2 fL (78.0-102.0); Mean Platelet Volume 9.8 fl (8.7-11.0); Monocytes Percent Auto 7.7 % (2.0-11.0); Neutrophils Absolute Auto 6.87 K/mm3 (1.70-7.20); Neutrophils Percent Auto 65.9 % (50.0-70.0); Platelet Count Result 342 K/mm3 (150-420); Red Blood Count 3.66 M/mm3 (4.70-6.10); Red Cell Distribution Width 12.2 % (11.6-14.4); White Blood Count 10.4 K/mm3 (4.8-10.8)
[2023-06-09 09:30] LABS: Anion Gap 7 mmol/L (8-16); Blood Urea Nitrogen 16 mg/dL (7-18); Calcium 8.9 mg/dL (8.5-10.1); Carbon Dioxide 29 mmol/L (21-32); Chloride 101 mmol/L (98-108); Estimated CRCL calculation 90 ml/min; Estimated Glomerular Filt Rate > 60; Glucose 287 mg/dL (70-99); Osmolality Calculated 295 mOsm/kg (285-295); Potassium 4.6 mmol/L (3.5-5.1); Sodium 137 mmol/L (136-145)
[2023-06-09 10:32] LABS: Erythrocyte Sedimentation Rate 34 mm/hr (0-20)
[2023-06-09 11:47] LABS: Glucose Point of Care 256 mg/dl (65-105)
[2023-06-09] MEDS: INSULIN HUMAN LISPRO (*BKC) 1,000 UNITS/10 ML VIAL SUB-Q (12:39)
[2023-06-09 16:35] VITALS: BP 130/56; PULSE 60; RESP 16; TEMP 36.1; O2SAT 98
[2023-06-09 17:04] LABS: Glucose Point of Care 150 mg/dl (65-105)
[2023-06-09 20:00] VITALS: PULSE 60; RESP 16; O2SAT 98
[2023-06-09 20:34] LABS: Glucose Point of Care 231 mg/dl (65-105)
[2023-06-09] MEDS: ATORVASTATIN 40 MG TABLET 80 MG PO (20:35)
[2023-06-09] MEDS: GABAPENTIN 300 MG CAPSULE 600 MG PO (20:35)
[2023-06-09] MEDS: HYDROcodone/acetaminophen (*CRX) 5-325 MG TABLET 1 TAB PO (22:05)
[2023-06-10] VITALS: BP 124/56; PULSE 60; RESP 17; TEMP 36.4; O2SAT 97
[2023-06-10] MEDS: ceFAZolin 2 GM/NS 50 ML 2 GM/50 ML BAG IVPB ×3 (00:26→16:45)
[2023-06-10 08:00] VITALS: BP 130/60; PULSE 64; RESP 16; TEMP 36.2; O2SAT 98
[2023-06-10 08:03] LABS: Glucose Point of Care 138 mg/dl (65-105)
[2023-06-10] MEDS: INSULIN HUMAN LISPRO (*BKC) 1,000 UNITS/10 ML VIAL 14 UNITS SUB-Q ×3 (08:23→16:50)
[2023-06-10] MEDS: FLUTICASONE PROPIONATE 0.05% NA SPR 16 GM BTL (*BKC) 2 SPRAY NASAL (09:15)
[2023-06-10 09:16] VITALS: PULSE 72
[2023-06-10] MEDS: atenoloL 12.5 MG TABLET PO (09:16)
[2023-06-10] MEDS: CHOLECALCIFEROL 1,000 UNITS TABLET 5000 UNITS PO (09:16)
[2023-06-10] MEDS: GABAPENTIN 300 MG CAPSULE PO (09:17)
[2023-06-10] MEDS: OPTI-GEN TAB 1 TABLET PO (09:17)
[2023-06-10] MEDS: ASPIRIN 81 MG ENTERIC TABLET PO (09:17)
[2023-06-10] MEDS: CLOPIDOGREL BISULFATE 75 MG TABLET PO (09:17)
[2023-06-10] MEDS: metFORMIN HCL 500 MG TABLET PO (09:17)
[2023-06-10] MEDS: INSULIN GLARGINE (*BKC) 1,000 UNITS/10 ML VIAL 35 UNITS SUB-Q ×2 (09:24→20:38)
[2023-06-10 11:57] LABS: Glucose Point of Care 253 mg/dl (65-105)
[2023-06-10] MEDS: INSULIN HUMAN LISPRO (*BKC) 1,000 UNITS/10 ML VIAL SUB-Q (12:45)
[2023-06-10 15:47] VITALS: BP 121/48; PULSE 58; RESP 16; TEMP 36.1; O2SAT 98
[2023-06-10 16:50] LABS: Glucose Point of Care 91 mg/dl (65-105)
[2023-06-10] MEDS: ATORVASTATIN 40 MG TABLET 80 MG PO (20:37)
[2023-06-10] MEDS: GABAPENTIN 300 MG CAPSULE 600 MG PO (20:37)
[2023-06-10] MEDS: HYDROcodone/acetaminophen (*CRX) 5-325 MG TABLET 1 TAB PO (20:37)
[2023-06-10 20:43] LABS: Glucose Point of Care 212 mg/dl (65-105)
[2023-06-10 23:48] VITALS: BP 136/59; PULSE 61; RESP 18; TEMP 36.4; O2SAT 98
[2023-06-11] MEDS: ceFAZolin 2 GM/NS 50 ML 2 GM/50 ML BAG IVPB ×3 (00:46→16:44)
[2023-06-11 07:56] LABS: Glucose Point of Care 148 mg/dl (65-105)
[2023-06-11 08:00] VITALS: BP 142/62; PULSE 68; RESP 14; TEMP 36.6; O2SAT 98
[2023-06-11] MEDS: INSULIN HUMAN LISPRO (*BKC) 1,000 UNITS/10 ML VIAL 14 UNITS SUB-Q ×3 (08:31→16:44)
[2023-06-11] MEDS: FLUTICASONE PROPIONATE 0.05% NA SPR 16 GM BTL (*BKC) 2 SPRAY NASAL (09:20)
[2023-06-11 09:29] VITALS: PULSE 78
[2023-06-11] MEDS: ASPIRIN 81 MG ENTERIC TABLET PO (09:29)
[2023-06-11] MEDS: OPTI-GEN TAB 1 TABLET PO (09:29)
[2023-06-11] MEDS: CLOPIDOGREL BISULFATE 75 MG TABLET PO (09:29)
[2023-06-11] MEDS: atenoloL 12.5 MG TABLET PO (09:29)
[2023-06-11] MEDS: metFORMIN HCL 500 MG TABLET PO (09:29)
[2023-06-11] MEDS: GABAPENTIN 300 MG CAPSULE PO (09:29)
[2023-06-11] MEDS: INSULIN GLARGINE (*BKC) 1,000 UNITS/10 ML VIAL 35 UNITS SUB-Q ×2 (09:31→20:48)
[2023-06-11 11:48] LABS: Glucose Point of Care 232 mg/dl (65-105)
--- NOTE | 2023-06-11 12:02 | PM.IMPN ---
Progress Note: A&P Assessment and Plan (1) Osteomyelitis of right foot: Code(s): M86.9 - Osteomyelitis, unspecified Status: Acute Assessment and Plan: Status post partial foot amputation all toes removed. Patient is receiving IV antibiotics per PICC line left upper extremity. These are to continue for 6 weeks. Follow-up in five weeks and weekly lab monitoring per Infectious Disease. 06/01: Healing well. Continue with daily Betadine painting of incision. Labs were reviewed today. 06/04: [place] removed yesterday looks good okay with open to air however surgeon not provide any wound care instructions but did reapply Alexander wrap without further dressing. 06/10: Healed wound, no signs of infection (2) Diabetes: Code(s): E11.9 - Type 2 diabetes mellitus without complications Status: Acute Assessment and Plan: Increased Lantus to 42 units at night, patient gets 14 units of insulin with each meal plus low-dose sliding scale. Next adjustment recommendation be to change sliding scale to high dose if the increase Lantus does not help improve his sugars. He is also not receiving his Trulicity here that he was taking at home. After further review home medications it appears the patient takes 110 units of Toujeo daily at home so we likely room to increase his Lantus dosing as needed. 06/01: Currently receiving less pro 14 units with meals and high-dose sliding scale. He is receiving Lantus 65 units at night. Blood sugars ranging 137 to 194. 06/04:: See above for changes to insulin management 06/10: Stable (3) PAD (peripheral artery disease): Code(s): I73.9 - Peripheral vascular disease, unspecified Status: Acute Assessment and Plan: ?Scheduled appointment May 29 for vascular lab at [facility] -ultrasound ?Scheduled appointment June 01 for vascular surgeon at [facility] 06/04: Patient has gone to follow-up visit no further instructions received at this time Plan Feeding: Diabetic diet Analgesia: [place] Thromboembolic prophylaxis: Lovenox Ulcer prophylaxis: N/A Glycemic control: Lispro 14 units with meals, high-dose sliding scale to restart on 06/05, 35 units of Lantus Q12H. Hypoglycemia protocol in place Bowel regimen: P.r.n. MiraLax Activity: Nonweightbearing right lower extremity until next visit with surgeon scheduled on 06/17 Antibiotics: Cefazolin Q8 through 06/29 Disposition: Home when IV antibiotics completed Time Spent With Patient Time with patient: 15 - 25 minutes Subjective Date/time seen: 06/11/23 12:02 Interval history: Patient doing well, still getting IV antibiotics Q8 hours through left upper arm PICC line. Patient has appointment with surgeon on 06/17 and Infectious Disease on 06/18. It is anticipated that he will continue IV antibiotics until 06/29 unless plan gets changed by infectious disease. Blood sugars still not optimally controlled but seem to have leveled off. Patient denies any symptoms or concerns. Review of Systems Review of Systems: All systems reviewed & are unremarkable except as noted in HPI and below Exam Narrative: GENERAL: Well-appearing, well-nourished, and in no acute distress. HEAD: Normocephalic, atraumatic. ENT:? Mucous membranes moist. CHEST: Clear to auscultation.? No respiratory distress. HEART: Regular rate and rhythm. ? Normal peripheral pulses. ABDOMEN: Soft, nontender, nondistended. EXTREMITIES: Normal range of motion. No peripheral edema. Right foot partial amputation wound is closed with no signs drainage or infection. John[place] have been removed and site looks good. SKIN: Warm dry pale which is unchanged from prior NEURO: Alert and oriented x3. PSYCH: Normal mood and affect Objective Data Vital Signs Vital Signs: Vital Signs - 24 hr 06/10/23 15:47 06/10/23 23:48 06/11/23 09:29 Temperature 36.1 C L 36.4 C L Pulse Rate 58 L 61 78 Respiratory Rate 16 18 Blood Press
[2023-06-11] MEDS: INSULIN HUMAN LISPRO (*BKC) 1,000 UNITS/10 ML VIAL SUB-Q (12:20)
[2023-06-11 15:38] VITALS: BP 130/45; PULSE 62; RESP 16; TEMP 36.2; O2SAT 99
[2023-06-11 16:49] LABS: Glucose Point of Care 113 mg/dl (65-105)
[2023-06-11] MEDS: GABAPENTIN 300 MG CAPSULE 600 MG PO (20:44)
[2023-06-11] MEDS: ATORVASTATIN 40 MG TABLET 80 MG PO (20:44)
[2023-06-11] MEDS: HYDROcodone/acetaminophen (*CRX) 5-325 MG TABLET 1 TAB PO (20:45)
[2023-06-11 20:50] LABS: Glucose Point of Care 189 mg/dl (65-105)
[2023-06-12] VITALS: BP 116/48; PULSE 61; RESP 17; TEMP 36.1; O2SAT 97
[2023-06-12] MEDS: ceFAZolin 2 GM/NS 50 ML 2 GM/50 ML BAG IVPB ×3 (00:07→17:36)
[2023-06-12 07:40] VITALS: BP 134/54; PULSE 63; RESP 16; TEMP 36; O2SAT 98
[2023-06-12 08:03] LABS: Glucose Point of Care 161 mg/dl (65-105)
[2023-06-12] MEDS: INSULIN GLARGINE (*BKC) 1,000 UNITS/10 ML VIAL 40 UNITS SUB-Q ×2 (09:19→20:37)
[2023-06-12] MEDS: INSULIN HUMAN LISPRO (*BKC) 1,000 UNITS/10 ML VIAL 14 UNITS SUB-Q ×3 (09:20→17:04)
[2023-06-12] MEDS: CHOLECALCIFEROL 1,000 UNITS TABLET 5000 UNITS PO (09:21)
[2023-06-12 09:22] VITALS: PULSE 63
[2023-06-12] MEDS: FLUTICASONE PROPIONATE 0.05% NA SPR 16 GM BTL (*BKC) 2 SPRAY NASAL (09:22)
[2023-06-12] MEDS: GABAPENTIN 300 MG CAPSULE PO (09:22)
[2023-06-12] MEDS: ASPIRIN 81 MG ENTERIC TABLET PO (09:22)
[2023-06-12] MEDS: atenoloL 12.5 MG TABLET PO (09:22)
[2023-06-12] MEDS: OPTI-GEN TAB 1 TABLET PO (09:22)
[2023-06-12] MEDS: metFORMIN HCL 500 MG TABLET PO (09:22)
[2023-06-12] MEDS: CLOPIDOGREL BISULFATE 75 MG TABLET PO (09:22)
[2023-06-12 11:50] LABS: Glucose Point of Care 274 mg/dl (65-105)
[2023-06-12] MEDS: INSULIN HUMAN LISPRO (*BKC) 1,000 UNITS/10 ML VIAL SUB-Q (11:50)
--- NOTE | 2023-06-12 13:07 | P.PNCROSS_ITS ---
Event Note Event Note Event Note: Blood Sugars ranging 161 to 189, Lantus increased to 40 units q.12 hours. We w ill continue with high-dose sliding scale insulin and mealtime replacement of 14 units.
[2023-06-12 16:00] VITALS: BP 122/74; PULSE 78; RESP 18; TEMP 36.6; O2SAT 98
[2023-06-12 17:04] LABS: Glucose Point of Care 133 mg/dl (65-105)
[2023-06-12 20:00] VITALS: PULSE 78; RESP 18; O2SAT 98
[2023-06-12] MEDS: ATORVASTATIN 40 MG TABLET 80 MG PO (20:35)
[2023-06-12] MEDS: HYDROcodone/acetaminophen (*CRX) 5-325 MG TABLET 1 TAB PO (20:35)
[2023-06-12] MEDS: GABAPENTIN 300 MG CAPSULE 600 MG PO (20:35)
[2023-06-12 20:37] LABS: Glucose Point of Care 190 mg/dl (65-105)
[2023-06-13] VITALS: BP 140/66; PULSE 63; RESP 17; TEMP 36.3; O2SAT 98
[2023-06-13] MEDS: ceFAZolin 2 GM/NS 50 ML 2 GM/50 ML BAG IVPB ×3 (00:12→16:52)
--- NOTE | 2023-06-13 05:21 | PC.NURSE ---
Addendum entered by Montserrat Sherman RN 06/13/23 05:27: The dressing was changed on the PICC line today, and it is flushing well. Patient is still receiving IV antibiotics. Original Note: Patient was awake, watching TV in bed. Patient is nonweight bearing to the right lower extremity. He hops, using the gait belt, WW, and wearing the boot on his R foot. He is a stand by assist. Patient slept well, although he wakes up when someone enters the room, for antibiotics, taking out trash and dirty linens, etc. Patient's vitals were WNL with the exception of a low temperature of 97.3. PIXC
[2023-06-13 07:43] LABS: Glucose Point of Care 129 mg/dl (65-105)
[2023-06-13] MEDS: INSULIN HUMAN LISPRO (*BKC) 1,000 UNITS/10 ML VIAL 14 UNITS SUB-Q ×3 (07:58→16:53)
[2023-06-13 08:00] VITALS: BP 125/47; PULSE 54; RESP 20; TEMP 36.6; O2SAT 99
[2023-06-13 08:19] VITALS: PULSE 54
[2023-06-13] MEDS: atenoloL 12.5 MG TABLET PO (08:19)
[2023-06-13] MEDS: OPTI-GEN TAB 1 TABLET PO (08:22)
[2023-06-13] MEDS: metFORMIN HCL 500 MG TABLET PO (08:22)
[2023-06-13] MEDS: GABAPENTIN 300 MG CAPSULE PO (08:22)
[2023-06-13] MEDS: ASPIRIN 81 MG ENTERIC TABLET PO (08:23)
[2023-06-13] MEDS: FLUTICASONE PROPIONATE 0.05% NA SPR 16 GM BTL (*BKC) 2 SPRAY NASAL (08:23)
[2023-06-13] MEDS: CLOPIDOGREL BISULFATE 75 MG TABLET PO (08:23)
[2023-06-13 11:37] LABS: Glucose Point of Care 267 mg/dl (65-105)
[2023-06-13] MEDS: INSULIN HUMAN LISPRO (*BKC) 1,000 UNITS/10 ML VIAL SUB-Q (11:39)
[2023-06-13] MEDS: INSULIN GLARGINE (*BKC) 1,000 UNITS/10 ML VIAL 40 UNITS SUB-Q ×2 (11:40→21:19)
[2023-06-13 16:00] VITALS: BP 128/52; PULSE 58; RESP 20; TEMP 36.6; O2SAT 99
[2023-06-13 16:45] LABS: Glucose Point of Care 165 mg/dl (65-105)
[2023-06-13] MEDS: GABAPENTIN 300 MG CAPSULE 600 MG PO (21:19)
[2023-06-13] MEDS: ATORVASTATIN 40 MG TABLET 80 MG PO (21:19)
[2023-06-13 21:20] LABS: Glucose Point of Care 228 mg/dl (65-105)
[2023-06-14] VITALS: BP 168/57; PULSE 73; RESP 16; TEMP 36.6; O2SAT 99
[2023-06-14] MEDS: ceFAZolin 2 GM/NS 50 ML 2 GM/50 ML BAG IVPB ×3 (00:33→16:57)
[2023-06-14 08:00] VITALS: BP 136/59; PULSE 59; RESP 14; TEMP 36.2; O2SAT 97
[2023-06-14 08:01] LABS: Glucose Point of Care 172 mg/dl (65-105)
[2023-06-14] MEDS: FLUTICASONE PROPIONATE 0.05% NA SPR 16 GM BTL (*BKC) 2 SPRAY NASAL (08:59)
[2023-06-14 09:00] VITALS: PULSE 59
[2023-06-14] MEDS: CHOLECALCIFEROL 1,000 UNITS TABLET 5000 UNITS PO (09:00)
[2023-06-14] MEDS: OPTI-GEN TAB 1 TABLET PO (09:00)
[2023-06-14] MEDS: atenoloL 12.5 MG TABLET PO (09:00)
[2023-06-14] MEDS: ASPIRIN 81 MG ENTERIC TABLET PO (09:01)
[2023-06-14] MEDS: CLOPIDOGREL BISULFATE 75 MG TABLET PO (09:01)
[2023-06-14] MEDS: metFORMIN HCL 500 MG TABLET PO (09:01)
[2023-06-14] MEDS: GABAPENTIN 300 MG CAPSULE PO (09:01)
[2023-06-14] MEDS: INSULIN HUMAN LISPRO (*BKC) 1,000 UNITS/10 ML VIAL 14 UNITS SUB-Q ×3 (09:04→16:58)
[2023-06-14] MEDS: INSULIN GLARGINE (*BKC) 1,000 UNITS/10 ML VIAL 40 UNITS SUB-Q ×2 (09:05→21:46)
[2023-06-14 11:37] LABS: Glucose Point of Care 215 mg/dl (65-105)
[2023-06-14] MEDS: INSULIN HUMAN LISPRO (*BKC) 1,000 UNITS/10 ML VIAL SUB-Q (13:11)
[2023-06-14 16:00] VITALS: BP 140/62; PULSE 62; RESP 14; TEMP 36.8; O2SAT 97
[2023-06-14 16:49] LABS: Glucose Point of Care 143 mg/dl (65-105)
[2023-06-14] MEDS: GABAPENTIN 300 MG CAPSULE 600 MG PO (21:33)
[2023-06-14] MEDS: ATORVASTATIN 40 MG TABLET 80 MG PO (21:34)
[2023-06-14 21:42] LABS: Glucose Point of Care 187 mg/dl (65-105)
[2023-06-15] VITALS: BP 162/69; PULSE 65; RESP 16; TEMP 36.4; O2SAT 98
[2023-06-15] MEDS: ceFAZolin 2 GM/NS 50 ML 2 GM/50 ML BAG IVPB ×3 (00:51→16:29)
[2023-06-15 07:49] LABS: Glucose Point of Care 143 mg/dl (65-105)
[2023-06-15 08:00] VITALS: BP 124/53; PULSE 56; RESP 16; TEMP 36.2; O2SAT 98
[2023-06-15] MEDS: INSULIN HUMAN LISPRO (*BKC) 1,000 UNITS/10 ML VIAL 14 UNITS SUB-Q ×3 (08:30→16:29)
[2023-06-15 09:32] VITALS: PULSE 58
[2023-06-15] MEDS: GABAPENTIN 300 MG CAPSULE PO (09:32)
[2023-06-15] MEDS: atenoloL 12.5 MG TABLET PO (09:32)
[2023-06-15] MEDS: metFORMIN HCL 500 MG TABLET PO (09:32)
[2023-06-15] MEDS: CLOPIDOGREL BISULFATE 75 MG TABLET PO (09:32)
[2023-06-15] MEDS: OPTI-GEN TAB 1 TABLET PO (09:32)
[2023-06-15] MEDS: FLUTICASONE PROPIONATE 0.05% NA SPR 16 GM BTL (*BKC) 2 SPRAY NASAL (09:32)
[2023-06-15] MEDS: ASPIRIN 81 MG ENTERIC TABLET PO (09:33)
[2023-06-15] MEDS: INSULIN GLARGINE (*BKC) 1,000 UNITS/10 ML VIAL 40 UNITS SUB-Q ×2 (09:35→20:43)
[2023-06-15 12:03] LABS: Glucose Point of Care 203 mg/dl (65-105)
[2023-06-15] MEDS: INSULIN HUMAN LISPRO (*BKC) 1,000 UNITS/10 ML VIAL SUB-Q (12:59)
[2023-06-15 16:00] VITALS: BP 132/56; PULSE 59; RESP 18; TEMP 36.3; O2SAT 98
[2023-06-15 16:31] LABS: Glucose Point of Care 127 mg/dl (65-105)
--- NOTE | 2023-06-15 18:31 | PC.NURSE ---
full bed change done, pt given supplies for bed bath and fresh gown
[2023-06-15 19:58] VITALS: PULSE 59; RESP 18; O2SAT 98
[2023-06-15] MEDS: GABAPENTIN 300 MG CAPSULE 600 MG PO (20:44)
[2023-06-15] MEDS: ATORVASTATIN 40 MG TABLET 80 MG PO (20:44)
[2023-06-15 20:48] LABS: Glucose Point of Care 160 mg/dl (65-105)
[2023-06-16] VITALS: BP 144/59; PULSE 64; RESP 16; TEMP 36.1; O2SAT 97
[2023-06-16] MEDS: ceFAZolin 2 GM/NS 50 ML 2 GM/50 ML BAG IVPB ×3 (00:22→17:40)
[2023-06-16 05:24] LABS: Basophils Absolute Auto 0.08 K/mm3 (0.00-0.10); Basophils Percent Auto 0.7 % (0.0-1.0); Eosinophils Absolute Auto 0.48 K/mm3 (0.02-0.50); Eosinophils Percent Auto 3.9 % (1.0-6.0); Hematocrit 33.5 % (37.0-46.0); Hemoglobin 10.8 g/dL (12.4-15.3); Immature Granulocyte Absolute 0.07 K/mm3 (0.00-0.00); Immature Granulocyte Percent A 0.6 % (0.0-0.0); Lymphocytes Absolute Auto 3.23 K/mm3 (1.10-4.50); Lymphocytes Percent Auto 26.4 % (18.0-42.0); Mean Corpuscular HGB Conc 32.2 g/dL (32-36); Mean Corpuscular Hemoglobin 29.8 pg (27.0-31.0); Mean Corpuscular Volume 92.3 fL (78.0-102.0); Mean Platelet Volume 9.9 fl (8.7-11.0); Monocytes Absolute Auto 0.96 K/mm3 (0.10-0.90); Monocytes Percent Auto 7.9 % (2.0-11.0); Neutrophils Percent Auto 60.5 % (50.0-70.0); Platelet Count Result 333 K/mm3 (150-420); Red Blood Count 3.63 M/mm3 (4.70-6.10); Red Cell Distribution Width 11.9 % (11.6-14.4); White Blood Count 12.2 K/mm3 (4.8-10.8)
[2023-06-16 05:52] LABS: Anion Gap 7 mmol/L (8-16); Blood Urea Nitrogen 14 mg/dL (7-18); Calcium 8.8 mg/dL (8.5-10.1); Carbon Dioxide 30 mmol/L (21-32); Chloride 105 mmol/L (98-108); Estimated CRCL calculation 100 ml/min; Estimated Glomerular Filt Rate > 60; Glucose 115 mg/dL (70-99); Osmolality Calculated 295 mOsm/kg (285-295); Potassium 3.8 mmol/L (3.5-5.1); Sodium 142 mmol/L (136-145)
[2023-06-16 06:22] LABS: Erythrocyte Sedimentation Rate 32 mm/hr (0-20)
[2023-06-16 08:00] VITALS: BP 121/51; PULSE 67; RESP 18; TEMP 36.2; O2SAT 98
[2023-06-16 08:03] LABS: Glucose Point of Care 135 mg/dl (65-105)
[2023-06-16] MEDS: INSULIN HUMAN LISPRO (*BKC) 1,000 UNITS/10 ML VIAL 14 UNITS SUB-Q ×3 (08:29→17:24)
[2023-06-16 09:29] VITALS: PULSE 68
[2023-06-16] MEDS: OPTI-GEN TAB 1 TABLET PO (09:29)
[2023-06-16] MEDS: atenoloL 12.5 MG TABLET PO (09:29)
[2023-06-16] MEDS: ASPIRIN 81 MG ENTERIC TABLET PO (09:29)
[2023-06-16] MEDS: CHOLECALCIFEROL 1,000 UNITS TABLET 5000 UNITS PO (09:29)
[2023-06-16] MEDS: FLUTICASONE PROPIONATE 0.05% NA SPR 16 GM BTL (*BKC) 2 SPRAY NASAL (09:30)
[2023-06-16] MEDS: GABAPENTIN 300 MG CAPSULE PO (09:30)
[2023-06-16] MEDS: CLOPIDOGREL BISULFATE 75 MG TABLET PO (09:30)
[2023-06-16] MEDS: INSULIN GLARGINE (*BKC) 1,000 UNITS/10 ML VIAL 40 UNITS SUB-Q ×2 (09:42→21:05)
[2023-06-16] MEDS: metFORMIN HCL 500 MG TABLET PO (09:42)
--- NOTE | 2023-06-16 09:44 | PM.IMPN ---
Progress Note: A&P Assessment and Plan (1) Osteomyelitis of right foot: Code(s): M86.9 - Osteomyelitis, unspecified Status: Acute Assessment and Plan: Status post partial foot amputation all toes removed. Patient is receiving IV antibiotics per PICC line left upper extremity. These are to continue for 6 weeks. Follow-up in five weeks and weekly lab monitoring per Infectious Disease. 06/01: Healing well. Continue with daily Betadine painting of incision. Labs were reviewed today. 06/04: [place] removed yesterday looks good okay with open to air however surgeon not provide any wound care instructions but did reapply Alexander wrap without further dressing. 06/10: Healed wound, no signs of infection 06/14: Right foot wound healing, there is some scabbed area noted at the incision line, no redness, warmth, or signs of infection seen. Continue with Zosyn until June 29 patient has appointment with surgery on Friday of this week he also has an appointment with infectious disease on this week white blood cell count bumped to 12.2 today. He does not have any signs of infection and has no new complaints today. His assessment was negative. Vital signs are stable, he is on room air, he is afebrile. We will recheck his white blood cell count in a few days. (2) Diabetes: Code(s): E11.9 - Type 2 diabetes mellitus without complications Status: Acute Assessment and Plan: Increased Lantus to 42 units at night, patient gets 14 units of insulin with each meal plus low-dose sliding scale. Next adjustment recommendation be to change sliding scale to high dose if the increase Lantus does not help improve his sugars. He is also not receiving his Trulicity here that he was taking at home. After further review home medications it appears the patient takes 110 units of Toujeo daily at home so we likely room to increase his Lantus dosing as needed. 06/01: Currently receiving less pro 14 units with meals and high-dose sliding scale. He is receiving Lantus 65 units at night. Blood sugars ranging 137 to 194. 06/04:: See above for changes to insulin management 06/10: Stable 06/14: Blood sugars ranging 115-135 continue with current treatment plan (3) PAD (peripheral artery disease): Code(s): I73.9 - Peripheral vascular disease, unspecified Status: Acute Assessment and Plan: ?Scheduled appointment May 29 for vascular lab at [facility] -ultrasound ?Scheduled appointment June 01 for vascular surgeon at [facility] 06/04: Patient has gone to follow-up visit no further instructions received at this time 06/14: reports numbness and tingling in both lower extremities, uses a walker Time Spent With Patient Time with patient: 25 - 35 minutes Subjective Date/time seen: 06/16/23 09:44 Interval history: This is a 67-year-old male who presented to [facility] on 05/21/2023 after Amputation all toes on the right foot due to worsening infection and the development of osteomyelitis. He came to [place] swing bed for continued IV antibiotics. Patient is currently nonweightbearing to the left lower extremity. Incision today is well-approximated and healing , no signs of infection, he does have some redness over a bony prominence on the low lateral side his foot, likely a bunion forming. There is no open areas noted to his stump. he denies any fever, chills, nausea, vomiting, diarrhea, abdominal pain, chest pain, shortness a breath. His vital signs are stable, he is afebrile, he is currently on room air. His assessment is negative today. Labs today show a white blood cell count of 12.2, hemoglobin 10.8, blood sugar ranging 115-135. Previous white blood cell count was 10.4. We will recheck his labs again in a couple of days as he has no infection currently. we will continue with Zosyn until June 29. He does have a follow-up appointment with the bobbi
[2023-06-16 12:03] LABS: Glucose Point of Care 250 mg/dl (65-105)
[2023-06-16] MEDS: INSULIN HUMAN LISPRO (*BKC) 1,000 UNITS/10 ML VIAL SUB-Q (12:05)
[2023-06-16 16:00] VITALS: BP 120/51; PULSE 68; RESP 18; TEMP 35.9; O2SAT 99
[2023-06-16 17:01] LABS: Glucose Point of Care 138 mg/dl (65-105)
[2023-06-16 20:00] VITALS: PULSE 68; RESP 18; O2SAT 99
[2023-06-16] MEDS: HYDROcodone/acetaminophen (*CRX) 5-325 MG TABLET 1 TAB PO (21:05)
[2023-06-16] MEDS: GABAPENTIN 300 MG CAPSULE 600 MG PO (21:05)
[2023-06-16] MEDS: ATORVASTATIN 40 MG TABLET 80 MG PO (21:05)
[2023-06-16 21:08] LABS: Glucose Point of Care 195 mg/dl (65-105)
[2023-06-17] VITALS: BP 127/60; PULSE 63; RESP 17; TEMP 36.3; O2SAT 98
[2023-06-17] MEDS: ceFAZolin 2 GM/NS 50 ML 2 GM/50 ML BAG IVPB ×3 (00:14→17:41)
--- NOTE | 2023-06-17 04:27 | PC.NURSE ---
Patient was in bed watching TV on his tablet. Patient uses his urinal independently, although he does not call to have it emptied. He took pain medication at HS for pain of 7/10 for his right foot. He was able to sleep well except for interruptions for care. He tolerates the IV antibiotics well, and his wound is healed. Patient has CC 06/16, mets with his surgeon on 06/17, and meets with the ID physician 06/18. He is not receiving PT at this time, as he has met his goals for non-weight bearing. Once his Dr. allows him to be weight bearing, PT will re-evaluate his needs. IV antibiotics will be completed 06/29. HS blood sugar was 195. Sliding scale insulin and insulin lantus continues.
[2023-06-17 07:53] LABS: Glucose Point of Care 121 mg/dl (65-105)
[2023-06-17 08:00] VITALS: BP 132/53; PULSE 58; RESP 18; TEMP 35.9; O2SAT 98
[2023-06-17] MEDS: INSULIN HUMAN LISPRO (*BKC) 1,000 UNITS/10 ML VIAL 14 UNITS SUB-Q ×3 (08:23→17:23)
[2023-06-17] MEDS: GABAPENTIN 300 MG CAPSULE PO (09:20)
[2023-06-17 09:21] VITALS: PULSE 60
[2023-06-17] MEDS: FLUTICASONE PROPIONATE 0.05% NA SPR 16 GM BTL (*BKC) 2 SPRAY NASAL (09:21)
[2023-06-17] MEDS: atenoloL 12.5 MG TABLET PO (09:21)
[2023-06-17] MEDS: INSULIN GLARGINE (*BKC) 1,000 UNITS/10 ML VIAL 40 UNITS SUB-Q ×2 (09:21→21:07)
[2023-06-17] MEDS: OPTI-GEN TAB 1 TABLET PO (09:21)
[2023-06-17] MEDS: ASPIRIN 81 MG ENTERIC TABLET PO (09:21)
[2023-06-17] MEDS: metFORMIN HCL 500 MG TABLET PO (09:21)
[2023-06-17] MEDS: CLOPIDOGREL BISULFATE 75 MG TABLET PO (09:21)
[2023-06-17] MEDS: INSULIN HUMAN LISPRO (*BKC) 1,000 UNITS/10 ML VIAL SUB-Q (11:55)
[2023-06-17 11:57] LABS: Glucose Point of Care 221 mg/dl (65-105)
[2023-06-17 16:00] VITALS: BP 121/53; PULSE 60; RESP 18; TEMP 35.9; O2SAT 97
[2023-06-17 17:06] LABS: Glucose Point of Care 163 mg/dl (65-105)
[2023-06-17 20:00] VITALS: PULSE 60; RESP 18; O2SAT 97
[2023-06-17] MEDS: ATORVASTATIN 40 MG TABLET 80 MG PO (21:00)
[2023-06-17] MEDS: GABAPENTIN 300 MG CAPSULE 600 MG PO (21:00)
[2023-06-17] MEDS: HYDROcodone/acetaminophen (*CRX) 5-325 MG TABLET 1 TAB PO (21:01)
[2023-06-17 21:05] LABS: Glucose Point of Care 225 mg/dl (65-105)
[2023-06-18] VITALS: BP 139/58; PULSE 67; RESP 17; TEMP 36.3; O2SAT 97
[2023-06-18] MEDS: ceFAZolin 2 GM/NS 50 ML 2 GM/50 ML BAG IVPB ×3 (00:15→17:06)
--- NOTE | 2023-06-18 05:03 | PC.NURSE ---
Patient was in bed, sitting up and watching TV. Patient c/o pain to the right foot at level 7/10. Patient received [place], which was effective in alleviating his pain. Patient is requesting a wake up call of 0700 so that he can be ready for his DrJunie appointment today. His will take him at 0900. Patient's blood sugar was 225 at HS, possibly due to the large baked potato he ate with dinner. His PICC line is patent. IV abx continues through June 29. He tolerates them well, with no sign of adverse reactions. Patient's vitals were WNL with the exception of low temperature and diastolic blood pressure (139/58). Patient slept well.
[2023-06-18 06:00] LABS: Hematocrit 33.5 % (37.0-46.0); Hemoglobin 10.5 g/dL (12.4-15.3); Mean Corpuscular HGB Conc 31.3 g/dL (32-36); Mean Corpuscular Hemoglobin 29.4 pg (27.0-31.0); Mean Corpuscular Volume 93.8 fL (78.0-102.0); Mean Platelet Volume 10.1 fl (8.7-11.0); Platelet Count Result 333 K/mm3 (150-420); Red Blood Count 3.57 M/mm3 (4.70-6.10); Red Cell Distribution Width 11.9 % (11.6-14.4); White Blood Count 10.7 K/mm3 (4.8-10.8)
[2023-06-18 06:24] LABS: Alanine Aminotransferase 11 U/L (16-63); Albumin Level 2.6 g/dL (3.4-5.0); Alkaline Phosphatase 80 U/L (46-116); Anion Gap 7 mmol/L (4-12); Aspartate Amino Transferase 10 U/L (15-37); Bilirubin,Total 0.3 mg/dL (0.00-1.00); Blood Urea Nitrogen 16 mg/dL (7-18); Calcium 8.7 mg/dL (8.5-10.1); Carbon Dioxide 29 mmol/L (21-32); Chloride 105 mmol/L (98-108); Estimated CRCL calculation 100 ml/min; Estimated Glomerular Filt Rate > 60; Glucose 155 mg/dL (70-99); Osmolality Calculated 296 mOsm/kg (285-295); Potassium 3.9 mmol/L (3.5-5.1); Sodium 141 mmol/L (136-145); Total Protein 5.8 g/dL (6.4-8.2)
[2023-06-18 08:00] VITALS: BP 124/56; PULSE 60; RESP 16; TEMP 36.1; O2SAT 97
[2023-06-18] MEDS: CHOLECALCIFEROL 1,000 UNITS TABLET 5000 UNITS PO (08:02)
[2023-06-18] MEDS: GABAPENTIN 300 MG CAPSULE PO (08:02)
[2023-06-18] MEDS: OPTI-GEN TAB 1 TABLET PO (08:02)
[2023-06-18] MEDS: ASPIRIN 81 MG ENTERIC TABLET PO (08:02)
[2023-06-18 08:03] VITALS: PULSE 60
[2023-06-18] MEDS: metFORMIN HCL 500 MG TABLET PO (08:03)
[2023-06-18] MEDS: atenoloL 12.5 MG TABLET PO (08:03)
[2023-06-18] MEDS: CLOPIDOGREL BISULFATE 75 MG TABLET PO (08:03)
[2023-06-18 08:07] LABS: Glucose Point of Care 152 mg/dl (65-105)
[2023-06-18] MEDS: FLUTICASONE PROPIONATE 0.05% NA SPR 16 GM BTL (*BKC) 2 SPRAY NASAL (08:08)
[2023-06-18] MEDS: INSULIN HUMAN LISPRO (*BKC) 1,000 UNITS/10 ML VIAL 14 UNITS SUB-Q ×2 (08:09→17:06)
[2023-06-18] MEDS: INSULIN GLARGINE (*BKC) 1,000 UNITS/10 ML VIAL 40 UNITS SUB-Q ×2 (08:13→20:15)
--- NOTE | 2023-06-18 09:00 | PC.NURSE ---
Patient taken off floor to meet , out of building for MD appointment
[2023-06-18 16:00] VITALS: BP 133/53; PULSE 60; RESP 18; TEMP 36.3; O2SAT 98
[2023-06-18 17:02] LABS: Glucose Point of Care 185 mg/dl (65-105)
[2023-06-18] MEDS: ATORVASTATIN 40 MG TABLET 80 MG PO (20:14)
[2023-06-18] MEDS: GABAPENTIN 300 MG CAPSULE 600 MG PO (20:15)
[2023-06-18 20:18] LABS: Glucose Point of Care 223 mg/dl (65-105)
[2023-06-19] VITALS: BP 114/45; PULSE 61; RESP 16; TEMP 36.1; O2SAT 97
[2023-06-19] MEDS: ceFAZolin 2 GM/NS 50 ML 2 GM/50 ML BAG IVPB ×3 (00:01→17:03)
[2023-06-19 07:35] VITALS: BP 126/45; PULSE 60; RESP 16; TEMP 36; O2SAT 98
[2023-06-19 08:01] LABS: Glucose Point of Care 194 mg/dl (65-105)
[2023-06-19] MEDS: INSULIN HUMAN LISPRO (*BKC) 1,000 UNITS/10 ML VIAL 14 UNITS SUB-Q ×2 (09:00→17:03)
[2023-06-19 09:01] VITALS: PULSE 60
[2023-06-19] MEDS: atenoloL 12.5 MG TABLET PO (09:01)
[2023-06-19] MEDS: INSULIN GLARGINE (*BKC) 1,000 UNITS/10 ML VIAL 40 UNITS SUB-Q ×2 (09:01→20:09)
[2023-06-19] MEDS: OPTI-GEN TAB 1 TABLET PO (09:01)
[2023-06-19] MEDS: FLUTICASONE PROPIONATE 0.05% NA SPR 16 GM BTL (*BKC) 2 SPRAY NASAL (09:02)
[2023-06-19] MEDS: ASPIRIN 81 MG ENTERIC TABLET PO (09:02)
[2023-06-19] MEDS: CLOPIDOGREL BISULFATE 75 MG TABLET PO (09:02)
[2023-06-19] MEDS: metFORMIN HCL 500 MG TABLET PO (09:02)
[2023-06-19] MEDS: GABAPENTIN 300 MG CAPSULE PO (09:02)
--- NOTE | 2023-06-19 09:13 | PM.EVENT ---
Event Note Event Note Event Note: WBC count back down to 10.7. He had his follow-up surgery appointment yesterday and he is now weight-bearing as tolerated. PT and OT see him again and already discharged him. Plan today is for him to see infectious disease doctor. He will remain on IV antibiotics until June 29 and we will await further recommendations from Infectious Disease today.
--- NOTE | 2023-06-19 10:25 | PC.NURSE ---
Patient has ID appt. today. Patients here to pick patient up for appt that is at 1230. This nurse accompanied patient to front door via wheelchair. Left via private vehicle with . Patient states he thinks they will be back around 1500.
--- NOTE | 2023-06-19 14:35 | PC.NURSE ---
Patient back from dr. lopez. Transferred from car to wheelchair with no issues. Brought up to room by this nurse. Patient sitting up in recliner. Copy made of orders from LOBO BENITEZ. June 29 last day of antibiotic. PICC line to be removed after last antibiotic. Patient has call light and belongings at side. in room to visit with patient.
[2023-06-19 16:35] VITALS: BP 128/47; PULSE 61; RESP 16; TEMP 35.7; O2SAT 97
[2023-06-19 16:56] LABS: Glucose Point of Care 256 mg/dl (65-105)
[2023-06-19] MEDS: INSULIN HUMAN LISPRO (*BKC) 1,000 UNITS/10 ML VIAL SUB-Q (17:03)
[2023-06-19] MEDS: ATORVASTATIN 40 MG TABLET 80 MG PO (20:09)
[2023-06-19] MEDS: GABAPENTIN 300 MG CAPSULE 600 MG PO (20:09)
[2023-06-19 20:13] LABS: Glucose Point of Care 254 mg/dl (65-105)
[2023-06-20] VITALS: BP 136/58; PULSE 70; RESP 17; TEMP 36.4; O2SAT 97
[2023-06-20] MEDS: ceFAZolin 2 GM/NS 50 ML 2 GM/50 ML BAG IVPB ×3 (00:20→16:32)
[2023-06-20 07:45] VITALS: BP 107/47; PULSE 56; RESP 16; TEMP 36; O2SAT 98
[2023-06-20 08:00] LABS: Glucose Point of Care 206 mg/dl (65-105)
[2023-06-20] MEDS: INSULIN HUMAN LISPRO (*BKC) 1,000 UNITS/10 ML VIAL 14 UNITS SUB-Q ×3 (09:36→18:22)
[2023-06-20] MEDS: INSULIN HUMAN LISPRO (*BKC) 1,000 UNITS/10 ML VIAL SUB-Q ×2 (09:36→11:50)
[2023-06-20] MEDS: CHOLECALCIFEROL 1,000 UNITS TABLET 5000 UNITS PO (09:36)
[2023-06-20 09:37] VITALS: PULSE 55
[2023-06-20] MEDS: CLOPIDOGREL BISULFATE 75 MG TABLET PO (09:37)
[2023-06-20] MEDS: metFORMIN HCL 500 MG TABLET PO (09:37)
[2023-06-20] MEDS: INSULIN GLARGINE (*BKC) 1,000 UNITS/10 ML VIAL 40 UNITS SUB-Q ×2 (09:37→20:38)
[2023-06-20] MEDS: GABAPENTIN 300 MG CAPSULE PO (09:37)
[2023-06-20] MEDS: atenoloL 12.5 MG TABLET PO (09:37)
[2023-06-20] MEDS: ASPIRIN 81 MG ENTERIC TABLET PO (09:37)
[2023-06-20] MEDS: OPTI-GEN TAB 1 TABLET PO (09:37)
[2023-06-20] MEDS: FLUTICASONE PROPIONATE 0.05% NA SPR 16 GM BTL (*BKC) 2 SPRAY NASAL (09:37)
[2023-06-20 11:54] LABS: Glucose Point of Care 254 mg/dl (65-105)
[2023-06-20 16:40] VITALS: BP 123/56; PULSE 54; RESP 16; TEMP 36.1; O2SAT 98
[2023-06-20 16:44] LABS: Glucose Point of Care 81 mg/dl (65-105)
[2023-06-20] MEDS: GABAPENTIN 300 MG CAPSULE 600 MG PO (20:31)
[2023-06-20] MEDS: ATORVASTATIN 40 MG TABLET 80 MG PO (20:32)
[2023-06-20 20:35] LABS: Glucose Point of Care 155 mg/dl (65-105)
[2023-06-21] VITALS: BP 138/66; PULSE 60; RESP 16; TEMP 36.1; O2SAT 98
[2023-06-21] MEDS: ceFAZolin 2 GM/NS 50 ML 2 GM/50 ML BAG IVPB ×3 (00:08→17:48)
[2023-06-21 08:00] VITALS: BP 111/49; PULSE 60; RESP 16; TEMP 36.2; O2SAT 97
[2023-06-21 08:11] LABS: Glucose Point of Care 113 mg/dl (65-105)
--- NOTE | 2023-06-21 08:14 | PM.EVENT ---
Event Note Event Note Event Note: Discussed with patient who denies needing anything reviewed his last set of labs and we will plan on new labs this week coming up. Patient vitals are stable no adjustment needed at this time.
[2023-06-21] MEDS: INSULIN HUMAN LISPRO (*BKC) 1,000 UNITS/10 ML VIAL 14 UNITS SUB-Q ×3 (08:16→17:19)
[2023-06-21] MEDS: INSULIN GLARGINE (*BKC) 1,000 UNITS/10 ML VIAL 40 UNITS SUB-Q ×2 (09:44→20:59)
[2023-06-21] MEDS: OPTI-GEN TAB 1 TABLET PO (09:44)
[2023-06-21 09:45] VITALS: PULSE 60
[2023-06-21] MEDS: ASPIRIN 81 MG ENTERIC TABLET PO (09:45)
[2023-06-21] MEDS: metFORMIN HCL 500 MG TABLET PO (09:45)
[2023-06-21] MEDS: FLUTICASONE PROPIONATE 0.05% NA SPR 16 GM BTL (*BKC) 2 SPRAY NASAL (09:45)
[2023-06-21] MEDS: CLOPIDOGREL BISULFATE 75 MG TABLET PO (09:45)
[2023-06-21] MEDS: atenoloL 12.5 MG TABLET PO (09:45)
[2023-06-21] MEDS: GABAPENTIN 300 MG CAPSULE PO (09:45)
[2023-06-21] MEDS: INSULIN HUMAN LISPRO (*BKC) 1,000 UNITS/10 ML VIAL SUB-Q (12:11)
[2023-06-21 12:13] LABS: Glucose Point of Care 217 mg/dl (65-105)
[2023-06-21 16:00] VITALS: BP 144/55; PULSE 58; RESP 18; TEMP 36.2; O2SAT 99
[2023-06-21 17:07] LABS: Glucose Point of Care 162 mg/dl (65-105)
[2023-06-21 19:44] VITALS: PULSE 58; RESP 18; O2SAT 99
[2023-06-21] MEDS: ATORVASTATIN 40 MG TABLET 80 MG PO (20:55)
[2023-06-21] MEDS: GABAPENTIN 300 MG CAPSULE 600 MG PO (20:55)
[2023-06-21 21:01] LABS: Glucose Point of Care 195 mg/dl (65-105)
[2023-06-22] VITALS: BP 135/57; PULSE 64; RESP 17; TEMP 36.2; O2SAT 98
[2023-06-22] MEDS: ceFAZolin 2 GM/NS 50 ML 2 GM/50 ML BAG IVPB ×3 (00:06→17:50)
[2023-06-22 08:00] VITALS: BP 128/58; PULSE 58; RESP 18; TEMP 36.2; O2SAT 97
[2023-06-22 08:13] LABS: Glucose Point of Care 165 mg/dl (65-105)
[2023-06-22] MEDS: INSULIN HUMAN LISPRO (*BKC) 1,000 UNITS/10 ML VIAL 14 UNITS SUB-Q ×3 (08:20→17:13)
[2023-06-22] MEDS: INSULIN GLARGINE (*BKC) 1,000 UNITS/10 ML VIAL 40 UNITS SUB-Q ×2 (09:04→20:40)
[2023-06-22] MEDS: OPTI-GEN TAB 1 TABLET PO (09:05)
[2023-06-22] MEDS: FLUTICASONE PROPIONATE 0.05% NA SPR 16 GM BTL (*BKC) 2 SPRAY NASAL (09:05)
[2023-06-22] MEDS: CHOLECALCIFEROL 1,000 UNITS TABLET 5000 UNITS PO (09:05)
[2023-06-22 09:06] VITALS: PULSE 60
[2023-06-22] MEDS: metFORMIN HCL 500 MG TABLET PO (09:06)
[2023-06-22] MEDS: atenoloL 12.5 MG TABLET PO (09:06)
[2023-06-22] MEDS: GABAPENTIN 300 MG CAPSULE PO (09:06)
[2023-06-22] MEDS: CLOPIDOGREL BISULFATE 75 MG TABLET PO (09:06)
[2023-06-22] MEDS: ASPIRIN 81 MG ENTERIC TABLET PO (09:06)
[2023-06-22 12:01] LABS: Glucose Point of Care 238 mg/dl (65-105)
[2023-06-22] MEDS: INSULIN HUMAN LISPRO (*BKC) 1,000 UNITS/10 ML VIAL SUB-Q (12:08)
[2023-06-22 16:00] VITALS: BP 148/55; PULSE 62; RESP 20; TEMP 36.1; O2SAT 97
[2023-06-22 17:06] LABS: Glucose Point of Care 144 mg/dl (65-105)
[2023-06-22 20:00] VITALS: PULSE 62; RESP 20; O2SAT 97
[2023-06-22] MEDS: GABAPENTIN 300 MG CAPSULE 600 MG PO (20:37)
[2023-06-22] MEDS: polyethylene glycoL 3350 17 GM POWD.PACK PO (20:37)
[2023-06-22] MEDS: ATORVASTATIN 40 MG TABLET 80 MG PO (20:38)
[2023-06-22 20:42] LABS: Glucose Point of Care 174 mg/dl (65-105)
[2023-06-22 23:54] VITALS: BP 138/55; PULSE 65; RESP 17; TEMP 36.4; O2SAT 98
[2023-06-23] MEDS: ceFAZolin 2 GM/NS 50 ML 2 GM/50 ML BAG IVPB ×3 (00:05→17:48)
[2023-06-23 05:57] LABS: Basophils Absolute Auto 0.06 K/mm3 (0.00-0.10); Basophils Percent Auto 0.5 % (0.0-1.0); Eosinophils Absolute Auto 0.42 K/mm3 (0.02-0.50); Eosinophils Percent Auto 3.8 % (1.0-6.0); Hematocrit 34.2 % (37.0-46.0); Hemoglobin 10.8 g/dL (12.4-15.3); Immature Granulocyte Absolute 0.06 K/mm3 (0.00-0.00); Immature Granulocyte Percent A 0.5 % (0.0-0.0); Lymphocytes Absolute Auto 3.07 K/mm3 (1.10-4.50); Lymphocytes Percent Auto 27.7 % (18.0-42.0); Mean Corpuscular HGB Conc 31.6 g/dL (32-36); Mean Corpuscular Hemoglobin 29.3 pg (27.0-31.0); Mean Corpuscular Volume 92.7 fL (78.0-102.0); Mean Platelet Volume 9.8 fl (8.7-11.0); Monocytes Absolute Auto 0.97 K/mm3 (0.10-0.90); Monocytes Percent Auto 8.7 % (2.0-11.0); Neutrophils Absolute Auto 6.51 K/mm3 (1.70-7.20); Neutrophils Percent Auto 58.8 % (50.0-70.0); Platelet Count Result 329 K/mm3 (150-420); Red Blood Count 3.69 M/mm3 (4.70-6.10); Red Cell Distribution Width 11.9 % (11.6-14.4); White Blood Count 11.1 K/mm3 (4.8-10.8)
[2023-06-23 06:03] LABS: Anion Gap 6 mmol/L (4-12); Blood Urea Nitrogen 16 mg/dL (7-18); Calcium 8.8 mg/dL (8.5-10.1); Carbon Dioxide 29 mmol/L (21-32); Chloride 104 mmol/L (98-108); Estimated CRCL calculation 91 ml/min; Estimated Glomerular Filt Rate > 60; Glucose 159 mg/dL (70-99); Osmolality Calculated 292 mOsm/kg (285-295); Sodium 139 mmol/L (136-145)
[2023-06-23 07:06] LABS: Erythrocyte Sedimentation Rate 31 mm/hr (0-20)
[2023-06-23 08:00] VITALS: BP 117/54; PULSE 63; RESP 18; TEMP 36; O2SAT 97
[2023-06-23] MEDS: INSULIN HUMAN LISPRO (*BKC) 1,000 UNITS/10 ML VIAL 14 UNITS SUB-Q ×3 (08:05→17:15)
[2023-06-23 08:08] LABS: Glucose Point of Care 174 mg/dl (65-105)
[2023-06-23 09:08] VITALS: PULSE 63
[2023-06-23] MEDS: metFORMIN HCL 500 MG TABLET PO (09:08)
[2023-06-23] MEDS: atenoloL 12.5 MG TABLET PO (09:08)
[2023-06-23] MEDS: CLOPIDOGREL BISULFATE 75 MG TABLET PO (09:08)
[2023-06-23] MEDS: GABAPENTIN 300 MG CAPSULE PO (09:09)
[2023-06-23] MEDS: OPTI-GEN TAB 1 TABLET PO (09:09)
[2023-06-23] MEDS: FLUTICASONE PROPIONATE 0.05% NA SPR 16 GM BTL (*BKC) 2 SPRAY NASAL (09:09)
[2023-06-23] MEDS: INSULIN GLARGINE (*BKC) 1,000 UNITS/10 ML VIAL 40 UNITS SUB-Q ×2 (09:09→20:44)
[2023-06-23] MEDS: ASPIRIN 81 MG ENTERIC TABLET PO (09:09)
[2023-06-23] MEDS: INSULIN HUMAN LISPRO (*BKC) 1,000 UNITS/10 ML VIAL SUB-Q (11:59)
[2023-06-23 12:02] LABS: Glucose Point of Care 250 mg/dl (65-105)
[2023-06-23 16:00] VITALS: BP 131/54; PULSE 58; RESP 16; TEMP 36.2; O2SAT 98
[2023-06-23 16:55] LABS: Glucose Point of Care 154 mg/dl (65-105)
[2023-06-23 20:00] VITALS: PULSE 58; RESP 16; O2SAT 98
[2023-06-23] MEDS: ATORVASTATIN 40 MG TABLET 80 MG PO (20:43)
[2023-06-23] MEDS: GABAPENTIN 300 MG CAPSULE 600 MG PO (20:43)
[2023-06-23 20:48] LABS: Glucose Point of Care 209 mg/dl (65-105)
[2023-06-24] VITALS: BP 133/55; PULSE 69; RESP 16; TEMP 36.4; O2SAT 98
[2023-06-24] MEDS: ceFAZolin 2 GM/NS 50 ML 2 GM/50 ML BAG IVPB ×3 (00:12→16:24)
[2023-06-24 07:55] LABS: Glucose Point of Care 201 mg/dl (65-105)
[2023-06-24 08:00] VITALS: BP 142/58; PULSE 72; RESP 14; TEMP 36.6; O2SAT 98
[2023-06-24] MEDS: FLUTICASONE PROPIONATE 0.05% NA SPR 16 GM BTL (*BKC) 2 SPRAY NASAL (08:46)
[2023-06-24] MEDS: CHOLECALCIFEROL 1,000 UNITS TABLET 5000 UNITS PO (08:46)
[2023-06-24] MEDS: CLOPIDOGREL BISULFATE 75 MG TABLET PO (08:47)
[2023-06-24] MEDS: OPTI-GEN TAB 1 TABLET PO (08:47)
[2023-06-24] MEDS: ASPIRIN 81 MG ENTERIC TABLET PO (08:47)
[2023-06-24] MEDS: metFORMIN HCL 500 MG TABLET PO (08:48)
[2023-06-24] MEDS: GABAPENTIN 300 MG CAPSULE PO (08:48)
[2023-06-24 08:49] VITALS: PULSE 68
[2023-06-24] MEDS: atenoloL 12.5 MG TABLET PO (08:49)
[2023-06-24] MEDS: INSULIN GLARGINE (*BKC) 1,000 UNITS/10 ML VIAL 40 UNITS SUB-Q ×2 (08:52→20:31)
[2023-06-24] MEDS: INSULIN HUMAN LISPRO (*BKC) 1,000 UNITS/10 ML VIAL SUB-Q ×2 (08:53→12:43)
[2023-06-24] MEDS: INSULIN HUMAN LISPRO (*BKC) 1,000 UNITS/10 ML VIAL 14 UNITS SUB-Q ×3 (09:07→16:24)
[2023-06-24 11:42] LABS: Glucose Point of Care 268 mg/dl (65-105)
[2023-06-24 16:27] LABS: Glucose Point of Care 127 mg/dl (65-105)
[2023-06-24 16:40] VITALS: BP 128/59; PULSE 55; RESP 16; TEMP 36.2; O2SAT 97
[2023-06-24] MEDS: GABAPENTIN 300 MG CAPSULE 600 MG PO (20:31)
[2023-06-24] MEDS: ATORVASTATIN 40 MG TABLET 80 MG PO (20:31)
[2023-06-24 20:38] LABS: Glucose Point of Care 207 mg/dl (65-105)
--- NOTE | 2023-06-24 23:30 | PC.NURSE ---
Pt resting in bed and watching TV; Pt doesnt voice any concerns at this time.
[2023-06-25] VITALS: BP 123/51; PULSE 60; RESP 20; TEMP 36.7; O2SAT 96
[2023-06-25] MEDS: ceFAZolin 2 GM/NS 50 ML 2 GM/50 ML BAG IVPB ×3 (00:32→16:56)
--- NOTE | 2023-06-25 00:32 | PC.NURSE ---
IV antibiotic infusing as ordered.
--- NOTE | 2023-06-25 03:02 | PC.NURSE ---
Pt asleep and no signs of discomfort noted.
--- NOTE | 2023-06-25 04:13 | PC.NURSE ---
Pt asleep and no signs of discomfort noted.
--- NOTE | 2023-06-25 06:15 | PC.NURSE ---
Pt incontinent of liquid, brown stool. Pt cleaned, changed and repositioned to her back.
[2023-06-25 08:00] VITALS: BP 118/57; PULSE 56; RESP 14; TEMP 36.2; O2SAT 98
[2023-06-25 08:03] LABS: Glucose Point of Care 187 mg/dl (65-105)
[2023-06-25] MEDS: INSULIN HUMAN LISPRO (*BKC) 1,000 UNITS/10 ML VIAL 14 UNITS SUB-Q ×3 (08:25→17:00)
--- NOTE | 2023-06-25 08:37 | PM.EVENT ---
Event Note Event Note Event Note: Patient complaining of having these red spots on his foot. I may see some small area there is nothing significant. Patient denies any itching or pain but insist that I order something. I did order some cream will place as prn
[2023-06-25] MEDS: INSULIN GLARGINE (*BKC) 1,000 UNITS/10 ML VIAL 40 UNITS SUB-Q ×2 (09:00→20:52)
[2023-06-25 09:11] VITALS: PULSE 56
[2023-06-25] MEDS: OPTI-GEN TAB 1 TABLET PO (09:11)
[2023-06-25] MEDS: atenoloL 12.5 MG TABLET PO (09:11)
[2023-06-25] MEDS: FLUTICASONE PROPIONATE 0.05% NA SPR 16 GM BTL (*BKC) 2 SPRAY NASAL (09:12)
[2023-06-25] MEDS: metFORMIN HCL 500 MG TABLET PO (09:12)
[2023-06-25] MEDS: ASPIRIN 81 MG ENTERIC TABLET PO (09:12)
[2023-06-25] MEDS: CLOPIDOGREL BISULFATE 75 MG TABLET PO (09:12)
[2023-06-25] MEDS: GABAPENTIN 300 MG CAPSULE PO (09:12)
[2023-06-25 12:01] LABS: Glucose Point of Care 214 mg/dl (65-105)
[2023-06-25] MEDS: INSULIN HUMAN LISPRO (*BKC) 1,000 UNITS/10 ML VIAL SUB-Q (12:15)
[2023-06-25] MEDS: HYDROCORTISONE 1% 30 GM CREAM 1 APPLIC TOPICAL ×2 (12:51→21:05)
[2023-06-25 15:50] VITALS: BP 128/54; PULSE 68; RESP 18; TEMP 36.2; O2SAT 96
[2023-06-25 16:28] LABS: Glucose Point of Care 173 mg/dl (65-105)
[2023-06-25 19:34] VITALS: PULSE 65; RESP 20; O2SAT 99
[2023-06-25] MEDS: GABAPENTIN 300 MG CAPSULE 600 MG PO (20:51)
[2023-06-25] MEDS: ATORVASTATIN 40 MG TABLET 80 MG PO (20:51)
[2023-06-26] VITALS: BP 136/68; PULSE 62; RESP 18; TEMP 36.6; O2SAT 96
[2023-06-26 00:22] LABS: Glucose Point of Care 209 mg/dl (65-105)
[2023-06-26] MEDS: ceFAZolin 2 GM/NS 50 ML 2 GM/50 ML BAG IVPB ×3 (00:42→17:57)
[2023-06-26 08:00] VITALS: BP 126/63; PULSE 62; RESP 18; TEMP 36.2; O2SAT 97
[2023-06-26] MEDS: INSULIN HUMAN LISPRO (*BKC) 1,000 UNITS/10 ML VIAL 14 UNITS SUB-Q ×3 (08:09→17:11)
[2023-06-26 08:11] LABS: Glucose Point of Care 171 mg/dl (65-105)
[2023-06-26] MEDS: HYDROCORTISONE 1% 30 GM CREAM 1 APPLIC TOPICAL (09:29)
[2023-06-26] MEDS: FLUTICASONE PROPIONATE 0.05% NA SPR 16 GM BTL (*BKC) 2 SPRAY NASAL (09:29)
[2023-06-26 09:30] VITALS: PULSE 62
[2023-06-26] MEDS: CLOPIDOGREL BISULFATE 75 MG TABLET PO (09:30)
[2023-06-26] MEDS: ASPIRIN 81 MG ENTERIC TABLET PO (09:30)
[2023-06-26] MEDS: metFORMIN HCL 500 MG TABLET PO (09:30)
[2023-06-26] MEDS: OPTI-GEN TAB 1 TABLET PO (09:30)
[2023-06-26] MEDS: CHOLECALCIFEROL 1,000 UNITS TABLET 5000 UNITS PO (09:30)
[2023-06-26] MEDS: GABAPENTIN 300 MG CAPSULE PO (09:30)
[2023-06-26] MEDS: atenoloL 12.5 MG TABLET PO (09:30)
[2023-06-26] MEDS: INSULIN GLARGINE (*BKC) 1,000 UNITS/10 ML VIAL 40 UNITS SUB-Q ×2 (09:31→20:41)
[2023-06-26] MEDS: INSULIN HUMAN LISPRO (*BKC) 1,000 UNITS/10 ML VIAL SUB-Q ×2 (11:51→17:12)
[2023-06-26 11:53] LABS: Glucose Point of Care 260 mg/dl (65-105)
[2023-06-26 16:00] VITALS: BP 131/54; PULSE 58; RESP 18; TEMP 36.2; O2SAT 98
[2023-06-26 17:03] LABS: Glucose Point of Care 203 mg/dl (65-105)
[2023-06-26 19:56] VITALS: PULSE 58; RESP 18; O2SAT 98
[2023-06-26] MEDS: ATORVASTATIN 40 MG TABLET 80 MG PO (20:40)
[2023-06-26] MEDS: GABAPENTIN 300 MG CAPSULE 600 MG PO (20:41)
[2023-06-26 20:45] LABS: Glucose Point of Care 226 mg/dl (65-105)
[2023-06-27] VITALS: BP 141/56; PULSE 64; RESP 17; TEMP 36.4; O2SAT 98
[2023-06-27] MEDS: ceFAZolin 2 GM/NS 50 ML 2 GM/50 ML BAG IVPB ×3 (00:07→16:49)
--- NOTE | 2023-06-27 05:50 | PC.NURSE ---
Patient is independent in his room, and had already taken himself to bed at the beginning of the shift. Patient did not c/o pain, and did not receive any PRN medications. He slept well. He remains independent in his room with the walker. Patient's blood sugar was 226 HS.
[2023-06-27 07:45] LABS: Glucose Point of Care 197 mg/dl (65-105)
[2023-06-27 08:00] VITALS: BP 124/72; PULSE 74; RESP 18; TEMP 36.6; O2SAT 98
[2023-06-27 08:09] VITALS: PULSE 78
[2023-06-27] MEDS: HYDROCORTISONE 1% 30 GM CREAM 1 APPLIC TOPICAL (08:09)
[2023-06-27] MEDS: atenoloL 12.5 MG TABLET PO (08:09)
[2023-06-27] MEDS: FLUTICASONE PROPIONATE 0.05% NA SPR 16 GM BTL (*BKC) 2 SPRAY NASAL (08:09)
[2023-06-27] MEDS: OPTI-GEN TAB 1 TABLET PO (08:09)
[2023-06-27] MEDS: GABAPENTIN 300 MG CAPSULE PO (08:10)
[2023-06-27] MEDS: ASPIRIN 81 MG ENTERIC TABLET PO (08:10)
[2023-06-27] MEDS: CLOPIDOGREL BISULFATE 75 MG TABLET PO (08:10)
[2023-06-27] MEDS: INSULIN HUMAN LISPRO (*BKC) 1,000 UNITS/10 ML VIAL 14 UNITS SUB-Q ×3 (08:11→16:50)
[2023-06-27] MEDS: INSULIN GLARGINE (*BKC) 1,000 UNITS/10 ML VIAL 40 UNITS SUB-Q ×2 (08:14→20:49)
[2023-06-27] MEDS: metFORMIN HCL 500 MG TABLET PO (08:21)
--- NOTE | 2023-06-27 08:33 | P.PNCROSS_ITS ---
Event Note Event Note Event Note: Patient is seen today doing well. Today is my 1st day on service and I am assu malgorzata care of this patient. Right foot incision is completely healed. Plan is to discharge Thursday 06/29 after his a.m. IV antibiotic at 9:00 a.m.. PICC line will need to be removed prior to discharge. He has no concerns today.
[2023-06-27 11:38] LABS: Glucose Point of Care 285 mg/dl (65-105)
[2023-06-27] MEDS: INSULIN HUMAN LISPRO (*BKC) 1,000 UNITS/10 ML VIAL SUB-Q (11:52)
[2023-06-27 16:00] VITALS: BP 151/59; PULSE 61; RESP 18; TEMP 36.3; O2SAT 98
[2023-06-27 16:14] LABS: Glucose Point of Care 153 mg/dl (65-105)
[2023-06-27 20:48] LABS: Glucose Point of Care 152 mg/dl (65-105)
[2023-06-27] MEDS: ATORVASTATIN 40 MG TABLET 80 MG PO (20:50)
[2023-06-27] MEDS: ACETAMINOPHEN 325 MG TABLET 650 MG PO (20:50)
[2023-06-27] MEDS: GABAPENTIN 300 MG CAPSULE 600 MG PO (20:50)
[2023-06-28] VITALS: BP 135/57; PULSE 62; RESP 16; TEMP 36.4; O2SAT 98
[2023-06-28] MEDS: ceFAZolin 2 GM/NS 50 ML 2 GM/50 ML BAG IVPB ×3 (00:50→17:36)
[2023-06-28 07:53] LABS: Glucose Point of Care 201 mg/dl (65-105)
[2023-06-28 08:00] VITALS: BP 116/47; PULSE 54; RESP 14; TEMP 36.1; O2SAT 97
[2023-06-28] MEDS: INSULIN HUMAN LISPRO (*BKC) 1,000 UNITS/10 ML VIAL 14 UNITS SUB-Q ×3 (08:20→17:36)
[2023-06-28] MEDS: INSULIN HUMAN LISPRO (*BKC) 1,000 UNITS/10 ML VIAL SUB-Q ×2 (08:25→12:35)
[2023-06-28] MEDS: FLUTICASONE PROPIONATE 0.05% NA SPR 16 GM BTL (*BKC) 2 SPRAY NASAL (09:26)
[2023-06-28] MEDS: HYDROCORTISONE 1% 30 GM CREAM 1 APPLIC TOPICAL (09:26)
[2023-06-28 09:27] VITALS: PULSE 54
[2023-06-28] MEDS: atenoloL 12.5 MG TABLET PO (09:27)
[2023-06-28] MEDS: CHOLECALCIFEROL 1,000 UNITS TABLET 5000 UNITS PO (09:27)
[2023-06-28] MEDS: OPTI-GEN TAB 1 TABLET PO (09:27)
[2023-06-28] MEDS: GABAPENTIN 300 MG CAPSULE PO (09:28)
[2023-06-28] MEDS: CLOPIDOGREL BISULFATE 75 MG TABLET PO (09:28)
[2023-06-28] MEDS: metFORMIN HCL 500 MG TABLET PO (09:28)
[2023-06-28] MEDS: INSULIN GLARGINE (*BKC) 1,000 UNITS/10 ML VIAL 40 UNITS SUB-Q ×2 (09:49→20:28)
[2023-06-28] MEDS: ASPIRIN 81 MG ENTERIC TABLET PO (09:49)
[2023-06-28 12:20] LABS: Glucose Point of Care 226 mg/dl (65-105)
[2023-06-28 16:45] VITALS: BP 133/57; PULSE 58; RESP 16; TEMP 36.2; O2SAT 99
[2023-06-28 17:04] LABS: Glucose Point of Care 189 mg/dl (65-105)
[2023-06-28] MEDS: ATORVASTATIN 40 MG TABLET 80 MG PO (20:26)
[2023-06-28] MEDS: GABAPENTIN 300 MG CAPSULE 600 MG PO (20:26)
[2023-06-28] MEDS: ACETAMINOPHEN 325 MG TABLET 650 MG PO (20:27)
[2023-06-28 23:47] LABS: Glucose Point of Care 191 mg/dl (65-105)
[2023-06-29] VITALS: BP 127/57; PULSE 54; RESP 16; TEMP 36.1; O2SAT 98
[2023-06-29] MEDS: ceFAZolin 2 GM/NS 50 ML 2 GM/50 ML BAG IVPB ×3 (00:56→16:44)
[2023-06-29 07:54] LABS: Glucose Point of Care 197 mg/dl (65-105)
[2023-06-29 08:00] VITALS: BP 115/45; PULSE 51; RESP 14; TEMP 36.1; O2SAT 96
[2023-06-29] MEDS: INSULIN HUMAN LISPRO (*BKC) 1,000 UNITS/10 ML VIAL 14 UNITS SUB-Q ×3 (08:33→16:45)
[2023-06-29 09:24] VITALS: PULSE 51
[2023-06-29] MEDS: CLOPIDOGREL BISULFATE 75 MG TABLET PO (09:24)
[2023-06-29] MEDS: OPTI-GEN TAB 1 TABLET PO (09:24)
[2023-06-29] MEDS: metFORMIN HCL 500 MG TABLET PO (09:24)
[2023-06-29] MEDS: atenoloL 12.5 MG TABLET PO (09:24)
[2023-06-29] MEDS: GABAPENTIN 300 MG CAPSULE PO (09:24)
[2023-06-29] MEDS: ASPIRIN 81 MG ENTERIC TABLET PO (09:25)
[2023-06-29] MEDS: FLUTICASONE PROPIONATE 0.05% NA SPR 16 GM BTL (*BKC) 2 SPRAY NASAL (09:25)
[2023-06-29] MEDS: INSULIN GLARGINE (*BKC) 1,000 UNITS/10 ML VIAL 40 UNITS SUB-Q ×2 (09:34→20:36)
[2023-06-29] MEDS: INSULIN HUMAN LISPRO (*BKC) 1,000 UNITS/10 ML VIAL SUB-Q (12:10)
[2023-06-29 16:40] VITALS: BP 131/59; PULSE 16; RESP 60; TEMP 36.1; O2SAT 97
[2023-06-29 16:50] LABS: Glucose Point of Care 169 mg/dl (65-105)
[2023-06-29 16:50] LABS: Glucose Point of Care 287 mg/dl (65-105)
[2023-06-29] MEDS: GABAPENTIN 300 MG CAPSULE 600 MG PO (20:30)
[2023-06-29] MEDS: ATORVASTATIN 40 MG TABLET 80 MG PO (20:30)
[2023-06-29 20:39] LABS: Glucose Point of Care 190 mg/dl (65-105)
[2023-06-30] VITALS: BP 127/49; PULSE 58; RESP 16; TEMP 36.2; O2SAT 98
[2023-06-30] MEDS: ceFAZolin 2 GM/NS 50 ML 2 GM/50 ML BAG IVPB ×2 (00:51→08:24)
[2023-06-30 05:17] LABS: Basophils Absolute Auto 0.08 K/mm3 (0.00-0.10); Basophils Percent Auto 0.7 % (0.0-1.0); Hematocrit 33.8 % (37.0-46.0); Hemoglobin 10.7 g/dL (12.4-15.3); Immature Granulocyte Absolute 0.04 K/mm3 (0.00-0.00); Immature Granulocyte Percent A 0.3 % (0.0-0.0); Lymphocytes Absolute Auto 2.89 K/mm3 (1.10-4.50); Lymphocytes Percent Auto 24.1 % (18.0-42.0); Mean Corpuscular HGB Conc 31.7 g/dL (32-36); Mean Corpuscular Hemoglobin 29.2 pg (27.0-31.0); Mean Corpuscular Volume 92.3 fL (78.0-102.0); Monocytes Absolute Auto 0.95 K/mm3 (0.10-0.90); Monocytes Percent Auto 7.9 % (2.0-11.0); Neutrophils Absolute Auto 7.45 K/mm3 (1.70-7.20); Platelet Count Result 272 K/mm3 (150-420); Red Blood Count 3.66 M/mm3 (4.70-6.10); Red Cell Distribution Width 11.9 % (11.6-14.4)
[2023-06-30 05:33] LABS: Anion Gap 9 mmol/L (4-12); Blood Urea Nitrogen 14 mg/dL (7-18); Calcium 8.8 mg/dL (8.5-10.1); Carbon Dioxide 26 mmol/L (21-32); Chloride 104 mmol/L (98-108); Estimated CRCL calculation 104 ml/min; Estimated Glomerular Filt Rate > 60; Glucose 138 mg/dL (70-99); Osmolality Calculated 290 mOsm/kg (285-295); Potassium 4.1 mmol/L (3.5-5.1); Sodium 139 mmol/L (136-145)
[2023-06-30 06:23] LABS: Erythrocyte Sedimentation Rate 28 mm/hr (0-20)
[2023-06-30 07:43] LABS: Glucose Point of Care 148 mg/dl (65-105)
[2023-06-30 07:51] VITALS: BP 131/55; PULSE 55; RESP 18; TEMP 36.4; O2SAT 98
--- NOTE | 2023-06-30 07:52 | PM.DS ---
DS: Admitting Diagnosis Discharge Date 06-29 Admitting Diagnosis Osteomyelitis, IV antibiotics DS: Discharge Diagnosis Discharge Diagnosis (1) Osteomyelitis of right foot: Code(s): M86.9 - Osteomyelitis, unspecified Status: Acute Assessment and Plan: Status post partial foot amputation all toes removed. Patient is receiving IV antibiotics per PICC line left upper extremity. These are to continue for 6 weeks. Follow-up in five weeks and weekly lab monitoring per Infectious Disease. 06/01: Healing well. Continue with daily Betadine painting of incision. Labs were reviewed today. 06/04: [place] removed yesterday looks good okay with open to air however surgeon not provide any wound care instructions but did reapply Alexander wrap without further dressing. 06/10: Healed wound, no signs of infection 06/14: Right foot wound healing, there is some scabbed area noted at the incision line, no redness, warmth, or signs of infection seen. Continue with Zosyn until June 29 patient has appointment with surgery on Friday of this week he also has an appointment with infectious disease on this week white blood cell count bumped to 12.2 today. He does not have any signs of infection and has no new complaints today. His assessment was negative. Vital signs are stable, he is on room air, he is afebrile. We will recheck his white blood cell count in a few days. (2) Diabetes: Code(s): E11.9 - Type 2 diabetes mellitus without complications Status: Acute Assessment and Plan: Increased Lantus to 42 units at night, patient gets 14 units of insulin with each meal plus low-dose sliding scale. Next adjustment recommendation be to change sliding scale to high dose if the increase Lantus does not help improve his sugars. He is also not receiving his Trulicity here that he was taking at home. After further review home medications it appears the patient takes 110 units of Toujeo daily at home so we likely room to increase his Lantus dosing as needed. 06/01: Currently receiving less pro 14 units with meals and high-dose sliding scale. He is receiving Lantus 65 units at night. Blood sugars ranging 137 to 194. 06/04:: See above for changes to insulin management 06/10: Stable 06/14: Blood sugars ranging 115-135 continue with current treatment plan (3) PAD (peripheral artery disease): Code(s): I73.9 - Peripheral vascular disease, unspecified Status: Acute Assessment and Plan: ?Scheduled appointment May 29 for vascular lab at [facility] -ultrasound ?Scheduled appointment June 01 for vascular surgeon at [facility] 06/04: Patient has gone to follow-up visit no further instructions received at this time 06/14: reports numbness and tingling in both lower extremities, uses a walker DS: Summary Hospital Course Hospital Course: HPI obtained from chart ?66 year old male post op R foot toes amputation on 05/14/23 at [facility]. Patient states infection started in R great toe and developed into osteomyelitis. Patient states his first surgery was an amputation of the R great and 2nd toes, which was then treated with post op antibiotics yet still worsened. Patient states sores developed on foot and infection worsened. Patient reports second surgery was needed in which all remaining toes were amputated. Patient states he is diabetic and BS range from 130 to 180, but had increased due to infection. Patient has a history of bilateral arterial stent is lower extremities and sees a vascular surgeon at [facility]. Patient has also have past history of amputations on the left lower extremities. Patient is currently NWB to [facility]. Patient has been able to use walker to move from bed to chair. Patients was up in chair and in pleasant mood. Surgical incision is intact with 21 chauncey present. Surgical site is slightly swollen and red but no discharge present on examination this
[2023-06-30] MEDS: INSULIN HUMAN LISPRO (*BKC) 1,000 UNITS/10 ML VIAL 14 UNITS SUB-Q (08:18)
[2023-06-30] MEDS: CHOLECALCIFEROL 1,000 UNITS TABLET 5000 UNITS PO (08:21)
[2023-06-30] MEDS: ASPIRIN 81 MG ENTERIC TABLET PO (08:21)
[2023-06-30 08:22] VITALS: PULSE 78
[2023-06-30] MEDS: GABAPENTIN 300 MG CAPSULE PO (08:22)
[2023-06-30] MEDS: metFORMIN HCL 500 MG TABLET PO (08:22)
[2023-06-30] MEDS: CLOPIDOGREL BISULFATE 75 MG TABLET PO (08:22)
[2023-06-30] MEDS: FLUTICASONE PROPIONATE 0.05% NA SPR 16 GM BTL (*BKC) 2 SPRAY NASAL (08:22)
[2023-06-30] MEDS: OPTI-GEN TAB 1 TABLET PO (08:22)
[2023-06-30] MEDS: atenoloL 12.5 MG TABLET PO (08:22)
[2023-06-30] MEDS: INSULIN GLARGINE (*BKC) 1,000 UNITS/10 ML VIAL 40 UNITS SUB-Q (08:33)
--- NOTE | 2023-07-01 09:51 | PC.NURSE ---
discharge call back attempted, no answer
--- NOTE | 2023-07-02 08:32 | PC.NURSE ---
Discharge call back attempted, no answer
--- NOTE | 2023-07-07 08:06 | PC.NURSE ---
Unable to reach for DC call back
== END 2023-06-30 10:36 | disposition home or self-care (01) | DRG 638 ==
PROVIDERS: Nurse Practitioner; Nurse Practitioner Acute Care; Admitting Provider Internal Medicine; PCP Family Medicine; Visit Provider Internal Medicine
DX: E11.69 Type 2 diabetes mellitus with other specified complication (principal); M86.9 Osteomyelitis, unspecified; E11.51 Type 2 diabetes mellitus with diabetic peripheral angiopathy without gangrene; E11.649 Type 2 diabetes mellitus with hypoglycemia without coma; Z47.81 Encounter for orthopedic aftercare following surgical amputation; Z89.421 Acquired absence of other right toe(s); Z95.820 Peripheral vascular angioplasty status with implants and grafts
CPT/HCPCS: 36415; 80048; 80053; 82948; 83036; 83735; 85025; 85027; 85652; 93922; 93926; 97110; 97161; 97164; 97165; 97530; 97535; A9270; J0690; J1650; J1815